=== PATIENT | female | born 1975 | race Caucasian/White ===

== ENCOUNTER 2017-10-28 09:58 | Day surgery (SDC) | payer OTHER ==
[~2017-10-28 09:58] MED LIST: Lactated Ringers 1,000 ML IV SCH; Lidocaine 1%/Sod Bicarbonate in NS 8.4% 1 ML Syringe IDERM PRN; Sodium Chloride 0.9% 10 ML Syringe FLUSH PRN
--- NOTE | 2017-10-28 10:41 | PCM.PREANE ---
Preanesthetic Assessment - Procedure Proposed Procedure: Coloroscopy - Anesthesia/Transfusion/Family Hx Anesthesia History: Prior Anesthesia Reaction ("quit breathing during surgery") Family History of Anesthesia Reaction: Yes ("dad doesn't take well to anesthesia " ? resistance?) Transfusion History: No Prior Transfusion(s) Intubation History: Unknown - Review of Systems General: No Symptoms Pulmonary: No Symptoms, Other (asthma ) Cardiovascular: No Symptoms Gastrointestinal: No Symptoms Neurological: No Symptoms Other: Reports: None - Physical Assessment NPO Status Date: 10/28/17 NPO Status Time: 01:30 O2 Sat by Pulse Oximetry: 96 Respiratory Rate: 16 Vital Signs: Last Vital Signs Temp 36.1 C 10/28/17 10:00 Pulse 86 10/28/17 10:00 Resp 16 10/28/17 10:00 BP 141/100 H 10/28/17 10:00 Pulse Ox 96 10/28/17 10:00 Height: 1.6 m Weight: 133.81 kg ASA Class: 2 Mental Status: Alert & Oriented x3 Airway Class: Mallampati = 1 Dentition: Reports: Normal Dentition Thyro-Mental Finger Breadths: 3 Mouth Opening Finger Breadths: 5 ROM/Head Extension: Full Lungs: Clear to Auscultation, Normal Respiratory Effort Cardiovascular: Regular Rate, Regular Rhythm - Allergies Allergies/Adverse Reactions: Allergies Allergy/AdvReac Type Severity Reaction Status Date / Time No Known Allergies Allergy Verified 10/27/17 13:13 - Blood Blood Available: No - Acknowledgements Anesthesia Type Planned: MAC Pt an Appropriate Candidate for the Planned Anesthesia: Yes Alternatives and Risks of Anesthesia Discussed w Pt/Guardian: Yes Pt/Guardian Understands and Agrees with Anesthesia Plan: Yes PreAnesthesia Questionnaire HEENT History: Reports: Impaired Vision Cardiovascular History: Reports: Hypertension Respiratory History: Reports: Sleep Apnea, Other (See Below) Other Respiratory History: with Gastrointestinal History: Reports: Other (See Below) Other Gastrointestinal History: hepatic stenosis Genitourinary History: Reports: Renal Calculus 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 BANDING 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: Reports: , Other (See Below) Other OB/BYN History: ovarian cyst Musculoskeletal History: Reports: None Neurological History: Reports: None Psychiatric History: Reports: Addiction, Anxiety, Other (See Below) Other Psychiatric History: insomnia Endocrine/Metabolic History: Reports: None, Obesity/BMI 30+ Hematologic History: Reports: None Immunologic History: Reports: None Oncologic (Cancer) History: Reports: None Dermatologic History: Reports: Other (See Below) Other Dermatologic History: subcutaneous nodules, boils - Past Surgical History Head Surgeries/Procedures: Reports: None HEENT Surgical History: Reports: None Cardiovascular Surgical History: Reports: None Respiratory Surgical History: Reports: None GI Surgical History: Reports: Colonoscopy Female Surgical History: Reports: Hysterectomy Male Surgical History: Reports: None Neurological Surgical History: Reports: None Musculoskeletal Surgical History: Reports: None Oncologic Surgical History: Reports: None Dermatological Surgical History: Reports: None - SUBSTANCE USE Smoking Status *Q: Current Every Day Smoker Recreational Drug Use History: No - HOME MEDS Home Medications: Home Meds Eszopiclone [Lunesta] 3 mg PO BEDTIME 10/27/17 [History] Hydrochlorothiazide 25 mg PO DAILY 10/27/17 [History] Mometasone Furoate [Elocon] 1 dose TOP ASDIRECTED PRN 10/27/17 [History] Multivitamin [Daily Multiple Vitamin] 1 tab PO DAILY 10/27/17 [History] Sennosides [Senna] 8.6 mg PO DAILY PRN 10/27/17 [History] buPROPion HCl [Wellbutrin Xl] 150 mg PO DAILY 10/27/17 [History] - CURRENT (IN HOUSE) MEDS Current Meds: Current Medications Lactated Ringer's (Ringers, Lactated) 1,000 mls @ 125 mls/hr IV ASDIRECTED JUNE Last Admin: 10/28/17 10:15 Dose: 125 mls/hr Lidocaine/Sodium Bicarbonate (Buffered Lidocaine 1% In Ns 8.4%) 0.25 ml IDERM ONETIME PRN PRN Reason: Prior to IV Start Last Admin: 10/28/17 10:15 Dose: 0.25 ml Sodium Chloride (Saline Flush) 10 ml FLUSH ASDIRECTED PRN PRN Reason: Keep Vein Open
[2017-10-28] MEDS ORDERED: Propofol 200 MG/20 ML SDV ONE ×2 (10:45→10:54)
[2017-10-28] MEDS ORDERED: Lidocaine 1% 4 ML ONE (10:54)
[2017-10-28] MEDS ORDERED: Midazolam 1 MG/ML 2 ML SDV ONE (11:02)
--- NOTE | 2017-10-28 11:19 | PCM.OPNOTE ---
- General Post-Op/Procedure Note Date of Surgery/Procedure: 10/28/17 Operative Procedure(s): colonoscopy to cecum Pre Op Diagnosis: rectal bleeding Post-Op Diagnosis: Same Anesthesia Technique: MAC Primary Surgeon: Rohit Richards EBL in mLs: 0 Complications: None Condition: Good
[2017-10-28 11:31] VITALS: BP 112/54
--- NOTE | 2017-10-28 11:48 | PCM48HPAN ---
Post Anesthesia Note - EVALUATION WITHIN 48HRS OF ANESTHETIC Vital Signs in Normal Range: Yes Patient Participated in Evaluation: Yes Respiratory Function Stable: Yes Airway Patent: Yes Cardiovascular Function Stable: Yes Hydration Status Stable: Yes Pain Control Satisfactory: Yes Nausea and Vomiting Control Satisfactory: Yes Mental Status Recovered: Yes Pulse Rate: 76 SaO2: 98 Resp Rate: 16 Temperature: 36.2 C Blood Pressure: 112/54 Pulse Rate: 76
--- NOTE | 2017-10-28 12:12 | OR ---
DATE OF OPERATION: 10/28/2017 SURGEON: Rohit Richards MD PREOPERATIVE DIAGNOSIS: Rectal bleeding. POSTOPERATIVE DIAGNOSIS: Rectal bleeding. OPERATION PERFORMED: Colonoscopy to cecum. FINDINGS: Occasional diverticula in the sigmoid colon, some external hemorrhoids, did not see any internal hemorrhoids. There were no angiodysplasia, neoplasia, large tumor masses, or ulcerations noted. ANESTHESIA: Procedure done under IV sedation. DESCRIPTION OF PROCEDURE: The patient was taken to the endoscopy room, placed in a supine position, connected to monitoring equipment, given IV sedation, placed in the left lateral position, showing some external hemorrhoidal tags. Rectal exam showed good sphincter tone. A video Olympus colonoscope was then introduced into the rectum and threaded up without problem to the cecum, where the appendicular orifice was noted. Prep was excellent. [place] cleansing score grade A and the scope was slowly withdrawn showing the cecum, ascending colon, transverse colon, descending colon, sigmoid colon, and rectum. Retroflexed view was done. The above noted was found, did not see any need for banding of hemorrhoids. The patient tolerated the procedure, sent to recovery room in a stable condition, will be followed up in the clinic as needed. ESTIMATED BLOOD LOSS: MMODAL /[id number]
== END 2017-10-28 11:53 | disposition home or self-care (01) ==
LOC: JD.SDS 09:58
PROVIDERS: ATTEND Surgery
DX: K62.5 Hemorrhage of anus and rectum (principal); K57.30 Diverticulosis of large intestine without perforation or abscess without bleeding; K64.4 Residual hemorrhoidal skin tags; I10 Essential (primary) hypertension; J45.909 Unspecified asthma, uncomplicated; G47.30 Sleep apnea, unspecified; F41.9 Anxiety disorder, unspecified; E66.9 Obesity, unspecified; F17.200 Nicotine dependence, unspecified, uncomplicated; Z79.899 Other long term (current) drug therapy; Z90.710 Acquired absence of both cervix and uterus; Z98.890 Other specified postprocedural states
CPT/HCPCS: J2001; J2250; J2704; J7120

== ENCOUNTER 2018-06-20 13:53 | Emergency (ER) | payer OTHER ==
[2018-06-20 14:08] VITALS: BP 157/106
[2018-06-20] MEDS ORDERED: Acetaminophen/HYDROcodone 325-5 MG Tab PO ONE (14:46)
--- NOTE | 2018-06-20 14:46 | EDM.PDOC ---
ED HPI GENERAL MEDICAL PROBLEM - General Chief Complaint: Back Pain or Injury Stated Complaint: BACK PAIN/ L SIDE PAIN Time Seen by Provider: 06/20/18 14:15 Source of Information: Reports: Patient, RN Notes Reviewed History Limitations: Reports: Other (Somewhat hostile) - History of Present Illness INITIAL COMMENTS - FREE TEXT/NARRATIVE: The patient states that she developed left back pain 2 days ago, but that it has become progressively worse. It is sharp and crampy in character. It comes and goes, depending on her movements; it is exacerbated by most movements, relieved with remaining still. No recent fever, nausea, vomiting, diarrhea, or urinary symptoms. The patient states that it may be similar to prior kidney stones, however, she states that all of her prior stones have been on the right, so she cannot really tell if this is the same. The patient took 800 mg of ibuprofen earlier today, without relief. The patient's PCP is Dr. Schultz. Treatments DIRECTOR OF ORTHOPEDICS: Reports: Other (see below) Other Treatments DIRECTOR OF ORTHOPEDICS: motrin Left Middle Back Pain Score (Numeric/FACES): 7 - Related Data Allergies Allergy/AdvReac Type Severity Reaction Status Date / Time No Known Allergies Allergy Verified 10/27/17 13:13 Home Meds: Home Meds Mometasone Furoate [Elocon] 1 dose TOP ASDIRECTED PRN 10/27/17 [History] hydroCHLOROthiazide [Hydrochlorothiazide] 25 mg PO DAILY 10/27/17 [History] Orphenadrine [Norflex] 1 tab PO Q12H PRN #14 tab.er 06/20/18 [Rx] QUEtiapine Fumarate [Seroquel] 50 mg PO DAILY 06/20/18 [History] Past Medical History HEENT History: Reports: Impaired Vision Cardiovascular History: Reports: Hypertension Respiratory History: Reports: Sleep Apnea Gastrointestinal History: Reports: Other (See Below) (Hepatic steatosis) Genitourinary History: Reports: Renal Calculus PRODUCER ASSISTANT History: Reports: , Other (See Below) Other PRODUCER ASSISTANT History: ovarian cyst Psychiatric History: Reports: Anxiety, Other (See Below) (Insomnia) Endocrine/Metabolic History: Reports: Obesity/BMI 30+ - Past Surgical History GI Surgical History: Reports: Colonoscopy Female Surgical History: Reports: Section (x 1), Hysterectomy Social & Family History - Tobacco Use Smoking Status *Q: Current Some Day Smoker Years of Tobacco use: 29 Packs/Tins Daily: 0.4 - Caffeine Use Caffeine Use: Reports: Coffee - Alcohol Use Alcohol Use History: Yes Alcohol Use Frequency: Socially - Recreational Drug Use Recreational Drug Use: No - Living Situation & Occupation Living situation: Reports: , Alone 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 ED EXAM, GENERAL - Physical Exam Exam: See Below Exam Limited By: No Limitations General Appearance: Alert, WD/WN, No Apparent Distress (Appears uncomfortable) Eye Exam: Bilateral Eye: EOMI, Normal Inspection Ears: Normal External Exam, Hearing Grossly Normal Nose: Normal Inspection Throat/Mouth: Normal Inspection, Normal Lips, Normal Voice, No Airway Compromise Head: Atraumatic, Normocephalic Neck: Normal Inspection, Full Range of Motion Respiratory/Chest: No Respiratory Distress, Lungs Clear, Normal Breath Sounds, No Accessory Muscle Use Cardiovascular: Normal Peripheral Pulses, Regular Rate, Rhythm, No Gallop, No JVD, No Murmur, No Rub Peripheral Pulses: 4+: Radial (L), Radial (R) GI/Abdominal: Normal Bowel Sounds, Soft, No Organomegaly, No Distention, No Abnormal Bruit, No Mass, Other (Obese) (Female) Exam: Deferred Rectal (Female) Exam: Deferred Back Exam: Normal Inspection, Full Range of Motion (The patient is able to flex at the hip to 90, and extend to 45. She is able to twist bilaterally to 45. She is able to tilt bilaterally to 30. Unilateral knee bend is normal, bilaterally. Straight leg raise to 45 on the left induces back pain, but no radicular pain. Straight leg raise on the right to 70 is limited only by stretch, with no back pain or radicular symptoms.). No: CVA Tenderness (L), CVA Tenderness (R) Extremities: Normal Inspection, Normal Range of Motion, Non-Tender, Normal Capillary Refill, No Pedal Edema Neurological: Alert, Oriented, Normal Cognition, No Motor/Sensory Deficits Psychiatric: Flat Affect Skin Exam: Warm, Dry, Intact, Normal Color, No Rash Course - Vital Signs Last Recorded V/S: Last Vital Signs Temp 37.0 C 06/20/18 14:07 Pulse 86 06/20/18 14:07 Resp 20 06/20/18 14:07 BP 157/106 H 06/20/18 14:07 Pulse Ox 99 06/20/18 14:07 - Orders/Labs/Meds Orders: Active Orders 24 hr Category Date Time Status Orphenadrine [Norflex] Med 06/20/18 15:16 Stat 100 mg PO ONETIME STA Labs: Laboratory Tests 06/20/18 Range/Units 14:55 Urine Color Yellow (Yellow) Urine Appearance Clear (Clear) Urine pH 7.0 (5.0-8.0) Ur Specific [place] 1.015 (1.005-1.030) Urine Protein Negative (Negative) Urine Glucose (UA) Negative (Negative) Urine Ketones Negative (Negative) Urine Occult Blood Negative (Negative) Urine Nitrite Negative (Negative) Urine Bilirubin Negative (Negative) Urine Urobilinogen 0.2 (0.2-1.0) Ur Leukocyte Esterase Negative (Negative) Urine RBC 0-5 (0-5) /hpf Urine WBC 0-5 (0-5) /hpf Ur Epithelial Cells 0-5 (0-5) /hpf Urine Bacteria Occasional (FEW) /hpf Urine Mucus Not seen (FEW) /hpf Meds: Medications Discontinued Medications Generic Name Dose Route Start Last Admin Trade Name Freq PRN Reason Stop Dose Admin Hydrocodone Bitart/Acetaminophen 2 tab 06/20/18 14:46 06/20/18 14:51 Mildred 325-5 Mg PO 06/20/18 14:47 2 tab ONETIME ONE Administration Orphenadrine Citrate 100 mg 06/20/18 15:16 Norflex PO 06/20/18 15:17 ONETIME STA - Re-Assessments/Exams Free Text/Narrative Re-Assessment/Exam: 06/20/18 14:45 The cause of the patient's left flank pain is unclear. She has a history of kidney stones, and she states that her pain may be similar to prior kidney stones, except that they have always been on the right. Her pain is made worse with any movement, and she has no CVA tenderness, which are not consistent with a kidney stone. On examination, she has remarkably good flexibility, without induction of symptoms, speaking against a musculoskeletal etiology, and she has no radicular pain whatsoever, speaking against a herniated disc. I have ordered a urinalysis. If there is blood in the urine, we will proceed with a CT of her abdomen and pelvis without contrast, to look for a ureterolith. If her urine is free of blood, I will treat for a muscle spasm with Norflex, unless her urine demonstrates a UTI, in which case I would treat with an antibiotic. In the meantime, I have ordered 2 tablets of Mildred. The patient drove herself here, but told Mary Anne RN that her boyfriend is on his way. She lives here in [place]. 06/20/18 15:17 The patient's urinalysis is completely normal. While it is possible to have a ureterolith without blood in the urine, it is extremely rare, and, along with her history and physical examination, I don't believe that the risks of radiation from a CT scan outweighed the potential benefits. I am therefore going to recommend treatment for a muscle spasm. I have ordered Norflex him and will also have her continue to take ibuprofen. If she does not have significant improvement within the next few days, I would like her follow-up with her PCP, Dr. Schultz. Departure - Departure Time of Disposition: 15:22 Disposition: Home, Self-Care 01 Condition: Good Clinical Impression: Back muscle spasm - Discharge Information *PRESCRIPTION DRUG MONITORING PROGRAM REVIEWED*: Not Applicable *COPY OF PRESCRIPTION DRUG MONITORING REPORT IN PATIENT DAVIE: Not Applicable Referrals: Vladimir Schultz MD [Primary Care Provider] - Forms: ED Department Discharge Additional Instructions: You were seen in the emergency room for 2 days of left back pain. Workup in the ER included a urinalysis, which returned completely normal. You do not have a urinary tract infection, and there is no blood in your urine. The likelihood of your having a kidney stone is extremely small. Based on your history, physical examination, and urinalysis results, your back pain is most likely due to a muscle spasm. You have been started on the muscle relaxant Norflex. A prescription for Norflex has been sent to the [facility], located in the [facility] grocery store. Take one tablet of Norflex every 12 hours, starting tomorrow morning, 06/21/2018, as prescribed. In addition, recommend that you take [id number] ibuprofen, 3-4 tablets ( 600-800 mg) every 8 hours, with food, around the clock. If you continue to have back pain by the end this week, we recommend that you follow-up with your PCP, Dr. Vladimir Schultz. If any other problems, please do not hesitate to return to the ER. - My Orders Last 24 Hours: My Active Orders 06/20/18 15:16 Orphenadrine [Norflex] 100 mg PO ONETIME STA - Assessment/Plan Last 24 Hours: My Active Orders 06/20/18 15:16 Orphenadrine [Norflex] 100 mg PO ONETIME STA
[2018-06-20] MEDS ORDERED: Orphenadrine 100 MG Tab.ER PO STA (15:16)
== END 2018-06-20 15:40 | disposition home or self-care (01) ==
LOC: JD.ED 13:53
DX: M62.830 Muscle spasm of back (principal); I10 Essential (primary) hypertension; F17.210 Nicotine dependence, cigarettes, uncomplicated; Z79.899 Other long term (current) drug therapy
CPT/HCPCS: 81001; 99283; A9270

== ENCOUNTER 2019-01-30 16:36 | Emergency (ER) | payer OTHER ==
[2019-01-30] MEDS ORDERED: Ketorolac 60 MG/2 ML SDV IM ONE (17:13)
[2019-01-30] MEDS ORDERED: predniSONE 20 MG Tab PO ONE (17:21)
--- NOTE | 2019-01-30 17:23 | EDM.PDOC ---
ED HPI GENERAL MEDICAL PROBLEM - General Chief Complaint: Neck Problem Stated Complaint: NECK AND SHOULDER PAIN Time Seen by Provider: 01/30/19 16:57 Source of Information: Reports: Patient, RN Notes Reviewed History Limitations: Reports: No Limitations - History of Present Illness INITIAL COMMENTS - FREE TEXT/NARRATIVE: Patient is a 44-year-old female who presents to the ED for evaluation of neck and shoulder pain. The patient states that the pain developed this last and was told to start with but is gradually worsened. She states she went to the walk-in clinic on Tuesday and was given a muscle relaxer, Vicodin, and Aleve, she has been taking these but has not had much relief. The patient states that anytime she turns her head to the left she gets an immediate sharp intense lightning type sensation which she calls a "zing" , She states that she also feels as if she tilts her head back to far. She did try to go the chiropractor today, but they've referred her to the ER for further pain management. Patient does not remember any trauma to the area. She does not state whether she was having any hot packs or ice packs to the area. Neck Pain Score (Numeric/FACES): 7 - Related Data Allergies Allergy/AdvReac Type Severity Reaction Status Date / Time No Known Allergies Allergy Verified 01/30/19 16:53 Home Meds: Home Meds Mometasone Furoate [Elocon] 1 dose TOP ASDIRECTED PRN 10/27/17 [History] hydroCHLOROthiazide [Hydrochlorothiazide] 25 mg PO DAILY 10/27/17 [History] Orphenadrine [Norflex] 1 tab PO Q12H PRN #14 tab.er 06/20/18 [Rx] QUEtiapine Fumarate [Seroquel] 50 mg PO DAILY 06/20/18 [History] predniSONE [Deltasone] 20 mg PO ASDIRECTED #15 tablet 01/30/19 [Rx] Past Medical History HEENT History: Reports: Impaired Vision Cardiovascular History: Reports: Hypertension Respiratory History: Reports: Sleep Apnea Other Respiratory History: with Gastrointestinal History: Reports: Other (See Below) Other Gastrointestinal History: hepatic stenosis Genitourinary History: Reports: Renal Calculus RAWHIDE TRIMMER History: Reports: , Other (See Below) Other RAWHIDE TRIMMER History: ovarian cyst Musculoskeletal History: Reports: None Neurological History: Reports: None Psychiatric History: Reports: Anxiety, Other (See Below) Other Psychiatric History: insomnia Endocrine/Metabolic History: Reports: Obesity/BMI 30+ Hematologic History: Reports: None Immunologic History: Reports: None Oncologic (Cancer) History: Reports: None Dermatologic History: Reports: Other (See Below) Other Dermatologic History: subcutaneous nodules, boils - Past Surgical History Head Surgeries/Procedures: Reports: None GI Surgical History: Reports: Colonoscopy Female Surgical History: Reports: Section, Hysterectomy Neurological Surgical History: Reports: None Musculoskeletal Surgical History: Reports: None Oncologic Surgical History: Reports: None Dermatological Surgical History: Reports: None Social & Family History - Tobacco Use Smoking Status *Q: Never Smoker - Caffeine Use Caffeine Use: Reports: Coffee - Living Situation & Occupation Living situation: Reports: , Alone 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) ED ROS GENERAL - Review of Systems Review Of Systems: See Below Constitutional: Denies: Fever, Chills HEENT: Reports: No Symptoms, Other (L sided posterior neck pain) Respiratory: Denies: Shortness of Breath Cardiovascular: Denies: Chest Pain Endocrine: Reports: No Symptoms GI/Abdominal: Denies: Constipation, Diarrhea, Nausea, Vomiting : Reports: No Symptoms Musculoskeletal: Reports: No Symptoms Skin: Reports: No Symptoms Neurological: Reports: No Symptoms Psychiatric: Reports: No Symptoms Hematologic/Lymphatic: Reports: No Symptoms ED EXAM, UPPER BACK/NECK PAIN - Physical Exam Exam: See Below Exam Limited By: No Limitations General Appearance: Alert, WD/WN, No Apparent Distress (pt appears to be in mild amount of pain.), Other (pt moves in room very rigidly with a stiff neck) Eye Exam: Bilateral Eye: EOMI, Normal Inspection, PERRL Throat/Mouth Exam: Normal Inspection, Normal Lips, Normal Teeth, Normal Gums, Normal Oropharynx, Normal Voice, No Airway Compromise Head Exam: Atraumatic, Normocephalic Neck Exam: Non-Tender, Normal Alignment, Normal Inspection, Limited Range of Motion (d/t pain, pt has stiff neck), Stiff Neck, Tender Lateral (lower lateral neck and over superior trapezius mainly) Nexus Criteria: No: Posterior, Midline Cervical Tenderness, Evidence of Intoxication, Altered Level of Consciousness, Focal Neurological Deficit, Painful Distraction Injuries Cardiovascular/Respiratory: Regular Rate, Rhythm, No M/R/G, Normal Peripheral Pulses, No JVD, Normal Breath Sounds, No Respiratory Distress GI/Abdominal: Normal Bowel Sounds, Soft, Non-Tender, No Distention, No Mass Extremities: Normal Inspection, Normal Range of Motion, Normal Capillary Refill Neurologic: No Motor/Sensory Deficits, Alert, Normal Mood/Affect, Oriented x 3 Psychiatric: Normal Affect, Normal Mood Skin Exam: Normal Color, Warm/Dry Course - Vital Signs Last Recorded V/S: Last Vital Signs Temp 97.1 F 01/30/19 16:51 Pulse 75 01/30/19 16:51 Resp 16 01/30/19 16:51 BP 172/111 H 01/30/19 16:51 Pulse Ox 97 01/30/19 16:51 - Orders/Labs/Meds Meds: Medications Discontinued Medications Generic Name Dose Route Start Last Admin Trade Name Charlie PRN Reason Stop Dose Admin Ketorolac Tromethamine 60 mg 01/30/19 17:13 Toradol IM 01/30/19 17:14 ONETIME ONE - Re-Assessments/Exams Free Text/Narrative Re-Assessment/Exam: 01/30/19 17:26 Patient presents to the ED for the evaluation of a stiff neck. I did order Toradol injection and some PO prednisone, will send her home with a steroid burst, and a outpatient order for PT with possible traction therapy to evaluate her cervical neck pain. Departure - Departure Time of Disposition: 17:28 Disposition: Home, Self-Care 01 Condition: Fair Clinical Impression: Stiff neck - Discharge Information *PRESCRIPTION DRUG MONITORING PROGRAM REVIEWED*: No *COPY OF PRESCRIPTION DRUG MONITORING REPORT IN PATIENT DAVIE: No Instructions: Cervical Sprain, [id number], Neck Exercises Referrals: Madison Villafuerte NP [Primary Care Provider] - Additional Instructions: You were evaluated in the ED today for your stiff neck. You were given an injection of Toradol, and anti-inflammatory, and prednisone, it is likely that your pain is due to some sort of facet joint issue. The prednisone should take down some of the inflammation in these joint areas. You also were given an outpatient order for physical therapy, they should call you to schedule an appointment for possible traction therapy as this might help unlock the facet joints that are causing issues. Please take your other medications as previously prescribed. Please return to the ED if your symptoms change or worsen.
[2019-01-30 18:31] VITALS: BP 157/109
== END 2019-01-30 18:30 | disposition home or self-care (01) ==
LOC: JD.ED 16:36
DX: M43.6 Torticollis (principal); I10 Essential (primary) hypertension; F41.9 Anxiety disorder, unspecified; Z79.899 Other long term (current) drug therapy
CPT/HCPCS: 96372; 99283; A9270; J1885

== ENCOUNTER 2019-07-23 11:53 | Emergency (ER) | payer OTHER, SELFPAY ==
--- NOTE | 2019-07-23 12:22 | EDM.PDOC ---
ED HPI GENERAL MEDICAL PROBLEM - General Chief Complaint: Respiratory Problem Stated Complaint: HEAD AND CHEST CONGESTION Time Seen by Provider: 07/23/19 12:04 Source of Information: Reports: Patient History Limitations: Reports: No Limitations - History of Present Illness INITIAL COMMENTS - FREE TEXT/NARRATIVE: She is a 44-year-old female who presents with complaints of dry cough, body aches, "burning "in her lungs for the last 2 days. She has not had any fevers or shortness of breath. Patient's 5-year-old child was recently diagnosed with influenza A last week. She did not get a flu shot this year. Patient has a history of asthma and states that she is here because she "gets bronchitis easily ". Chest Pain Score (Numeric/FACES): 3 - Related Data Allergies Allergy/AdvReac Type Severity Reaction Status Date / Time No Known Allergies Allergy Verified 07/23/19 12:00 Home Meds: Home Meds Mometasone Furoate [Elocon] 1 dose TOP ASDIRECTED PRN 10/27/17 [History] Albuterol [Ventolin HFA] 2 puff .XX Q4H PRN #1 inhaler 07/23/19 [Rx] Codeine/Promethazine [Phenergan with Codeine] 5 ml PO Q4HR PRN #100 ml 07/23/19 [Rx] metFORMIN HCl [Metformin HCl] 1,000 mg PO BID 07/23/19 [History] traZODone HCl [Trazodone HCl] 200 mg PO QPM 07/23/19 [History] Past Medical History HEENT History: Reports: Impaired Vision Cardiovascular History: Reports: Hypertension Respiratory History: Reports: Sleep Apnea Other Respiratory History: with Gastrointestinal History: Reports: Other (See Below) Other Gastrointestinal History: hepatic stenosis Genitourinary History: Reports: Renal Calculus CASH APPLICATIONS MANAGER History: Reports: , Other (See Below) Other CASH APPLICATIONS MANAGER History: ovarian cyst Musculoskeletal History: Reports: None Neurological History: Reports: None Psychiatric History: Reports: Anxiety, Other (See Below) Other Psychiatric History: insomnia Endocrine/Metabolic History: Reports: Obesity/BMI 30+ Hematologic History: Reports: None Immunologic History: Reports: None Oncologic (Cancer) History: Reports: None Dermatologic History: Reports: Other (See Below) Other Dermatologic History: subcutaneous nodules, boils - Past Surgical History Head Surgeries/Procedures: Reports: None GI Surgical History: Reports: Colonoscopy Female Surgical History: Reports: Section, Hysterectomy Neurological Surgical History: Reports: None Musculoskeletal Surgical History: Reports: None Oncologic Surgical History: Reports: None Dermatological Surgical History: Reports: None Social & Family History - Tobacco Use Smoking Status *Q: Current Every Day Smoker Years of Tobacco use: 10 Packs/Tins Daily: 0.2 - Caffeine Use Caffeine Use: Reports: Coffee - Recreational Drug Use Recreational Drug Use: No - Living Situation & Occupation Living situation: Reports: , Alone 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 ED EXAM, GENERAL - Physical Exam Exam: See Below Exam Limited By: No Limitations General Appearance: Alert, WD/WN, No Apparent Distress Ears: Normal External Exam, Normal Canal, Hearing Grossly Normal, Normal TMs Throat/Mouth: Normal Inspection, Normal Lips, Normal Teeth, Normal Gums, Normal Oropharynx, Normal Voice, No Airway Compromise Head: Atraumatic, Normocephalic Neck: Normal Inspection, Supple, Non-Tender, Full Range of Motion Respiratory/Chest: No Respiratory Distress, Lungs Clear, Normal Breath Sounds, No Accessory Muscle Use, Chest Non-Tender Cardiovascular: Normal Peripheral Pulses, Regular Rate, Rhythm, No Edema, No Gallop, No JVD, No Murmur, No Rub Neurological: Alert, Oriented, CN II-XII Intact, Normal Cognition, Normal Gait, Normal Reflexes, No Motor/Sensory Deficits Psychiatric: Normal Affect, Normal Mood Skin Exam: Warm, Dry, Intact, Normal Color, No Rash Course - Vital Signs Last Recorded V/S: Last Vital Signs Temp 98.1 F 07/23/19 12:03 Pulse 84 07/23/19 12:03 Resp 14 07/23/19 12:03 BP 154/108 H 07/23/19 12:03 Pulse Ox 100 07/23/19 12:03 - Re-Assessments/Exams Free Text/Narrative Re-Assessment/Exam: 07/23/19 13:02 Patient was positive for influenza B. Discussed Tamiflu treatment and she declined. Will prescribe an albuterol inhaler as needed as well as Phenergan with codeine for cough. Discharge instructions as documented. Departure - Departure Time of Disposition: 13:03 Disposition: Home, Self-Care 01 Condition: Fair Clinical Impression: Influenza B - Discharge Information *PRESCRIPTION DRUG MONITORING PROGRAM REVIEWED*: No *COPY OF PRESCRIPTION DRUG MONITORING REPORT IN PATIENT DAVIE: No Prescriptions: Codeine/Promethazine [Phenergan with Codeine] 5 ml PO Q4HR PRN #100 ml PRN Reason: Cough Albuterol [Ventolin HFA] 2 puff .XX Q4H PRN #1 inhaler PRN Reason: Shortness Of Breath Instructions: Influenza, Adult, [id number] Referrals: Madison Villafuerte IRRIGATOR [Primary Care Provider] - Forms: ED Department Discharge Additional Instructions: You were seen in the emergency department today for cough, body aches, and fatigue for the last 2 days. You did test positive for influenza B. Discussed the use of Tamiflu and this was declined. A prescription for albuterol for shortness of breath as well as Phenergan with codeine for cough has been sent to [facility]. Take these medications as prescribed. Recommend that you rest and ensure adequate fluid intake. You may use [id number] Tylenol or ibuprofen as needed for any fever or discomfort. If you should experience any worsening symptoms, please do not hesitate to return to the emergency department or follow-up with your primary care provider. Sepsis Event Note - Evaluation Sepsis Screening Result: No Definite Risk - Focused Exam Vital Signs: Vital Signs Temp Pulse Resp BP Pulse Ox 07/23/19 12:03 98.1 F 84 14 154/108 H 100 Date Exam was Performed: 07/23/19 Time Exam was Performed: 13:02
[2019-07-23 14:00] VITALS: BP 130/88; PULSE 73
== END 2019-07-23 13:18 | disposition home or self-care (01) ==
LOC: JD.ED 11:53
DX: J10.1 Influenza due to other identified influenza virus with other respiratory manifestations (principal); J45.909 Unspecified asthma, uncomplicated; I10 Essential (primary) hypertension; F41.9 Anxiety disorder, unspecified; F17.210 Nicotine dependence, cigarettes, uncomplicated; E66.9 Obesity, unspecified; Z68.43 Body mass index [BMI] 50.0-59.9, adult; Z79.899 Other long term (current) drug therapy
CPT/HCPCS: 87804; 99283; 99284

== ENCOUNTER 2020-05-09 07:44 | Emergency (ER) | payer OTHER, SELFPAY ==
[2020-05-09 07:58] VITALS: BP 147/88; PULSE 98
[2020-05-09] MEDS ORDERED: Sodium Chloride 0.9% 1,000 ML IV STA (08:19)
[2020-05-09] MEDS ORDERED: Sodium Chloride 0.9% 10 ML Syringe FLUSH PRN (08:19)
[2020-05-09] MEDS ORDERED: Famotidine 20 MG/2 ML SDV IVPUSH ONE (08:20)
[2020-05-09] MEDS ORDERED: methylPREDNISolone Sodium Succinate 125 MG/2 ML SDV IVPUSH ONE (08:20)
[2020-05-09] MEDS ORDERED: diphenhydrAMINE 50 MG/ML SDV IVPUSH ONE (08:20)
--- NOTE | 2020-05-09 08:26 | EDM.PDOC ---
ED HPI GENERAL MEDICAL PROBLEM - General Chief Complaint: Skin Complaint Stated Complaint: SKIN COMPLAINT/HIVES Time Seen by Provider: 05/09/20 08:14 Source of Information: Reports: Patient History Limitations: Reports: No Limitations - History of Present Illness INITIAL COMMENTS - FREE TEXT/NARRATIVE: The patient presents with hives. The patient had a gastric sleeve done in [facility] on April 30. She had the steri-stripes removed 3 days ago and there was swelling under them and now she has developed hives on her trunk, and extremities. She has been using benadryl and hydrocortisone cream but it is not helping. She has no swelling in her throat and no trouble breathing. Onset: Gradual Duration: Day(s): (3) Location: Reports: Generalized Quality: Reports: Other (itchy) Improves with: Reports: None Worsens with: Reports: None Associated Symptoms: Reports: No Other Symptoms - Related Data Allergies Allergy/AdvReac Type Severity Reaction Status Date / Time No Known Allergies Allergy Verified 05/09/20 07:51 Home Meds: Home Meds Mometasone Furoate [Elocon] 1 dose TOP ASDIRECTED PRN 10/27/17 [History] Albuterol [Ventolin HFA] 2 puff .XX Q4H PRN #1 inhaler 07/23/19 [Rx] Sertraline [Zoloft] 25 mg PO DAILY 05/09/20 [History] Zolpidem [Ambien] 10 mg PO DAILY 05/09/20 [History] predniSONE [Prednisone] 40 mg PO DAILY #10 tablet 05/09/20 [Rx] Past Medical History HEENT History: Reports: Impaired Vision Cardiovascular History: Reports: Hypertension Respiratory History: Reports: Sleep Apnea Other Respiratory History: with Gastrointestinal History: Reports: Other (See Below) Other Gastrointestinal History: hepatic stenosis Genitourinary History: Reports: Renal Calculus 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: , Other (See Below) Other HORIZONTAL BORING MILL SET UP OPERATOR History: ovarian cyst Musculoskeletal History: Reports: None Neurological History: Reports: None Psychiatric History: Reports: Anxiety, Other (See Below) Other Psychiatric History: insomnia Endocrine/Metabolic History: Reports: Obesity/BMI 30+ Hematologic History: Reports: None Immunologic History: Reports: None Oncologic (Cancer) History: Reports: None Dermatologic History: Reports: Other (See Below) Other Dermatologic History: subcutaneous nodules, boils - Past Surgical History Head Surgeries/Procedures: Reports: None HEENT Surgical History: Reports: None Cardiovascular Surgical History: Reports: None Respiratory Surgical History: Reports: None GI Surgical History: Reports: Colonoscopy Female Surgical History: Reports: Section, Hysterectomy Neurological Surgical History: Reports: None Musculoskeletal Surgical History: Reports: None Oncologic Surgical History: Reports: None Dermatological Surgical History: Reports: None Social & Family History - Tobacco Use Tobacco Use Status *Q: Never Tobacco User - Caffeine Use Caffeine Use: Reports: None - Recreational Drug Use Recreational Drug Use: No - Living Situation & Occupation Living situation: Reports: , Alone 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) ED ROS GENERAL - Review of Systems Review Of Systems: See Below Constitutional: Reports: No Symptoms HEENT: Reports: No Symptoms Respiratory: Reports: No Symptoms Cardiovascular: Reports: No Symptoms Endocrine: Reports: No Symptoms GI/Abdominal: Reports: No Symptoms : Reports: No Symptoms Musculoskeletal: Reports: No Symptoms Skin: Reports: Rash (urticaria) Neurological: Reports: No Symptoms ED EXAM, SKIN/RASH Exam: See Below Exam Limited By: No Limitations General Appearance: Alert, No Apparent Distress Ears: Normal External Exam Nose: Normal Inspection Head: Atraumatic, Normocephalic Neck: Normal Inspection Respiratory/Chest: No Respiratory Distress, Lungs Clear, Normal Breath Sounds Cardiovascular: Regular Rate, Rhythm, No Edema, No Murmur GI/Abdominal: Soft, Non-Tender, No Organomegaly, No Mass, Other (3 incision sites with erythema around them. Urticaria to her arms and legs and trunk.) Course - Vital Signs Last Recorded V/S: Last Vital Signs Temp 97.4 F 05/09/20 07:54 Pulse 98 05/09/20 07:54 Resp 13 05/09/20 07:54 BP 147/88 H 05/09/20 07:54 Pulse Ox 100 05/09/20 07:54 - Orders/Labs/Meds Orders: Active Orders 24 hr Category Date Time Status Peripheral IV Care [RC] . DIRECTED Care 05/09/20 08:19 Ordered Famotidine [Pepcid] Med 05/09/20 08:20 Once 20 mg IVPUSH ONETIME ONE Sodium Chloride 0.9% [Normal Saline] 1,000 ml Med 05/09/20 08:19 Ordered IV .BOLUS Sodium Chloride 0.9% [Saline Flush] Med 05/09/20 08:19 Ordered 10 ml FLUSH ASDIRECTED PRN diphenhydrAMINE [Benadryl] Med 05/09/20 08:20 Once 50 mg IVPUSH ONETIME ONE methylPREDNISolone Sod Succ [Solu-MEDROL] Med 05/09/20 08:20 Once 125 mg IVPUSH ONETIME ONE Peripheral IV Insertion Adult [OM.PC] Stat Oth 05/09/20 08:19 Ordered - Re-Assessments/Exams Free Text/Narrative Re-Assessment/Exam: 05/09/20 08:24 I ordered an IV NS 1L bolus, solu-medrol 125mg IV, pepcid 20mg IV and benadryl 50mg IV. I will get her on some prednisone, benadryl and pepcid. Departure - Departure Time of Disposition: 08:30 Disposition: Home, Self-Care 01 Condition: Good Clinical Impression: Urticaria Allergic reaction Qualifiers: Encounter type: initial encounter Qualified Code(s): T78.40XA - Allergy, unspecified, initial encounter - Discharge Information *PRESCRIPTION DRUG MONITORING PROGRAM REVIEWED*: Not Applicable *COPY OF PRESCRIPTION DRUG MONITORING REPORT IN PATIENT DAVIE: Not Applicable Prescriptions: predniSONE [Prednisone] 40 mg PO DAILY #10 tablet Referrals: Madison Villafuerte NP [Primary Care Provider] - 1 Week Additional Instructions: Take the prednisone daily for 5 days. Take the pepcid daily for 1 week. Take benadryl every 6 hours as needed for allergy symptoms. Heat will bring this rash out so if you take a hot shower or bath you may notice a rash more. You can put hydrocortisone cream on the rash near the incision sites. Please return if you are worse. Sepsis Event Note (ED) - Evaluation Sepsis Screening Result: No Definite Risk - Focused Exam Vital Signs: Vital Signs Temp Pulse Resp BP Pulse Ox 05/09/20 07:54 97.4 F 98 13 147/88 H 100 - My Orders Last 24 Hours: My Active Orders 05/09/20 08:19 Peripheral IV Care [RC] . DIRECTED Sodium Chloride 0.9% [Normal Saline] 1,000 ml IV .BOLUS Sodium Chloride 0.9% [Saline Flush] 10 ml FLUSH ASDIRECTED PRN Peripheral IV Insertion Adult [OM.PC] Stat 05/09/20 08:20 Famotidine [Pepcid] 20 mg IVPUSH ONETIME ONE diphenhydrAMINE [Benadryl] 50 mg IVPUSH ONETIME ONE methylPREDNISolone Sod Succ [Solu-MEDROL] 125 mg IVPUSH ONETIME ONE - Assessment/Plan Last 24 Hours: My Active Orders 05/09/20 08:19 Peripheral IV Care [RC] . DIRECTED Sodium Chloride 0.9% [Normal Saline] 1,000 ml IV .BOLUS Sodium Chloride 0.9% [Saline Flush] 10 ml FLUSH ASDIRECTED PRN Peripheral IV Insertion Adult [OM.PC] Stat 05/09/20 08:20 Famotidine [Pepcid] 20 mg IVPUSH ONETIME ONE diphenhydrAMINE [Benadryl] 50 mg IVPUSH ONETIME ONE methylPREDNISolone Sod Succ [Solu-MEDROL] 125 mg IVPUSH ONETIME ONE
== END 2020-05-09 10:15 | disposition home or self-care (01) ==
LOC: JD.ED 07:44
DX: L50.0 Allergic urticaria (principal); F41.9 Anxiety disorder, unspecified; I10 Essential (primary) hypertension; E66.9 Obesity, unspecified; Z68.43 Body mass index [BMI] 50.0-59.9, adult; Z79.899 Other long term (current) drug therapy
CPT/HCPCS: 96374; 96375; 99283; 99283-25; J1200; J2930; J3490; J7030

== ENCOUNTER 2020-05-11 15:47 | Emergency (ER) | payer OTHER ==
[2020-05-11 16:04] VITALS: BP 150/70; PULSE 74
[2020-05-11] MEDS ORDERED: predniSONE 20 MG Tab PO ONE (16:13)
--- NOTE | 2020-05-11 16:18 | EDM.PDOC ---
ED HPI GENERAL MEDICAL PROBLEM - General Chief Complaint: Skin Complaint Stated Complaint: HIVES Time Seen by Provider: 05/11/20 16:00 Source of Information: Reports: Patient History Limitations: Reports: No Limitations - History of Present Illness INITIAL COMMENTS - FREE TEXT/NARRATIVE: 45-year-old female presents to the ED with continued problems with recurrent urticaria outbreaks for the last 4 days. Patient had a gastric sleeve procedure done laparoscopically in [place] April 30. She did have Steri-Strips holding her abdominal wounds together and reacted fairly violently to the Steri- Strip glue and still has patches of erythema and contact dermatitis where they were. She developed urticaria which became generalized approximately 3 days ago. She was seen through the ED and started on prednisone 20 mg once daily in the morning and has been taking Benadryl almost every 6 hours. In spite of this she is continue to break out in hives. She felt herself wheezing a bit today which made her come back to the emergency room. She has had no trouble with loss of voice and no sore throat. To her knowledge she has never had urticaria prior. Urticaria is worse in her groin and axilla. However it is generalized involving all extremities abdominal wall and her back. Itching is so severe she cannot sleep very well. Onset: Gradual Onset Date: 05/08/20 Duration: Day(s):, Getting Worse, Waxing/Waning Location: Reports: Generalized (Lysed urticaria involving extremities axilla and groin.) Quality: Reports: Other Severity: Severe (Lies severe itch.) Improves with: Reports: Medication (Benadryl has been helping with some of the pruritus.) Worsens with: Reports: Other (Worsens with exercise and) Context: Reports: Other (Developed urticaria after having Steri-Strips placed on her abdominal wounds April 30 after having a gastric sleeve procedure in [place]. The thinking is that she has developed an allergic response to the gl ue of the Steri-Strips as she has marked contact dermatitis at the sites of the Steri-Strips which have been removed.). Denies: Activity ( having a hot shower. She been using tepid showers as of late.), Exercise, Lifting, Sick Contact, Trauma Associated Symptoms: Reports: Other (Else a little short more short of breath and wheezy today. No throat closure symptoms.) Treatments SEE SUPERVISOR: Reports: Other (see below) (Is been taking Benadryl 75 mg almost every 6 hours.) - Related Data Allergies Allergy/AdvReac Type Severity Reaction Status Date / Time No Known Allergies Allergy Verified 05/11/20 15:55 Home Meds: Home Meds Mometasone Furoate [Elocon] 1 dose TOP ASDIRECTED PRN 10/27/17 [History] Albuterol [Ventolin HFA] 2 puff .XX Q4H PRN #1 inhaler 07/23/19 [Rx] Sertraline [Zoloft] 25 mg PO DAILY 05/09/20 [History] Zolpidem [Ambien] 10 mg PO DAILY 05/09/20 [History] predniSONE [Prednisone] 40 mg PO DAILY #10 tablet 05/09/20 [Rx] predniSONE [Prednisone] 20 mg PO BID #15 tablet 05/11/20 [Rx] Past Medical History HEENT History: Reports: Impaired Vision Cardiovascular History: Reports: Hypertension Respiratory History: Reports: Asthma (Currently on albuterol and mometasone inhalers.), Sleep Apnea Other Respiratory History: with Gastrointestinal History: Reports: Other (See Below) Other Gastrointestinal History: hepatic stenosis Genitourinary History: Reports: Renal Calculus 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: , 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 (See Below) 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 BENCH ASSEMBLY INSPECTOR History: ovarian cyst Musculoskeletal History: Reports: None Neurological History: Reports: None Psychiatric History: Reports: Anxiety, Other (See Below) Other Psychiatric History: insomnia Endocrine/Metabolic History: Reports: Obesity/BMI 30+ Hematologic History: Reports: None Immunologic History: Reports: None Oncologic (Cancer) History: Reports: None Dermatologic History: Reports: Other (See Below) Other Dermatologic History: subcutaneous nodules, boils - Past Surgical History Head Surgeries/Procedures: Reports: None HEENT Surgical History: Reports: None Cardiovascular Surgical History: Reports: None Respiratory Surgical History: Reports: None GI Surgical History: Reports: Colonoscopy Female Surgical History: Reports: Section, Hysterectomy Neurological Surgical History: Reports: None Musculoskeletal Surgical History: Reports: None Oncologic Surgical History: Reports: None Dermatological Surgical History: Reports: None Social & Family History - Tobacco Use Tobacco Use Status *Q: Never Tobacco User - Caffeine Use Caffeine Use: Reports: None - Recreational Drug Use Recreational Drug Use: No - Living Situation & Occupation Living situation: Reports: , Alone 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 Denies: Fever, Chills HEENT: Reports: No Symptoms Respiratory: Reports: Shortness of Breath, Wheezing (Wheezing more today.) Cardiovascular: Reports: No Symptoms Endocrine: Reports: Fatigue GI/Abdominal: Reports: Other (Abdominal pain at the site of recent laparoscopic surgery for gastric sleeve procedure. She reports current weight is 283 pounds.) : Reports: No Symptoms Musculoskeletal: Reports: Joint Pain (Sips low back and neck at times.) Skin: Reports: Dryness, Urticaria (Contact dermatitis scaly lesions abdominal wall at site of Steri-Strip application. Recent development of generalized urticaria), Other Neurological: Reports: No Symptoms Psychiatric: Reports: No Symptoms Hematologic/Lymphatic: Reports: No Symptoms Immunologic: Reports: No Symptoms ED EXAM, SKIN/RASH Exam: See Below Exam Limited By: No Limitations General Appearance: Alert, WD/WN, No Apparent Distress, Other (Temperature is 36.3 with a heart rate of 74. Respiratory is 13 with O2 sats 100% room air BP 150/70.) Eye Exam: Bilateral Eye: Normal Inspection (No scleral icterus or blepharal pallor.), PERRL Ears: Normal TMs Throat/Mouth: Other (Uvula and floor of the mouth are normal.) Head: Atraumatic ( Donation is normal.), Normocephalic Neck: Normal Inspection, Supple, Non-Tender, Full Range of Motion. No: Carotid Bruit, Lymphadenopathy (L), Lymphadenopathy (R) Respiratory/Chest: No Respiratory Distress, Lungs Clear, Normal Breath Sounds, No Accessory Muscle Use. No: Rhonchi, Wheezing Cardiovascular: Normal Peripheral Pulses, Regular Rate, Rhythm, No Edema, No Gallop, No Murmur, No Rub Peripheral Pulses: 2+: Posterior Tibial (L), Posterior Tibial (R), Dorsalis Pedis (L), Dorsalis Pedis (R), 3+: Carotid (L), Carotid (R) GI/Abdominal: Other (The abdomen is fairly obese. Recent surgical scars from laparoscopic procedure for gastric sleeve are healing adequately. There is evidence of contact dermatitis with scaling slightly erythematous dermatitis zane rounding the laparoscopic wounds where the Steri-Strips have been placed. She reports these are fading and are no longer very itchy.) Extremities: Normal Inspection, Normal Range of Motion, Non-Tender, No Pedal Edema Neurological: Alert, Oriented, CN II-XII Intact, Normal Cognition Psychiatric: Normal Affect, Normal Mood Skin: Warm, Dry, Intact, Normal Color, Other (She has generalized urticaria involving all of her extremities axilla and groin are the worst.) Location, Skin: Generalized (Generalized urticaria involving all of her extremities in particular her axilla and groins. It also involves the abdominal wall the chest wall and the back.) Characteristics: Urticarial Course - Vital Signs Last Recorded V/S: Last Vital Signs Temp 36.3 C 05/11/20 16:02 Pulse 74 05/11/20 16:02 Resp 13 05/11/20 16:02 BP 150/70 H 05/11/20 16:02 Pulse Ox 100 05/11/20 16:02 - Orders/Labs/Meds Meds: Medications Discontinued Medications Generic Name Dose Route Start Last Admin Trade Name Freq PRN Reason Stop Dose Admin Prednisone 30 mg 05/11/20 16:13 05/11/20 16:37 Prednisone PO 05/11/20 16:14 30 mg ONETIME ONE Administration - Radiology Interpretation Free Text/Narrative:: 45-year-old female presents to the ED with generalized urticaria x3-1/2 days duration. It appears that the nidus for the development of urticaria is Steri- Strip glue which was applied to her abdominal laparoscopic wounds post gastric sleeve procedure done April 30 in [place]. She has no past history of urticaria. She is currently on no new medications. She has been on prednisone 40 mg once daily in the morning with no relief of the urticaria. She continues to use Benadryl 50 mg and sometimes 75 mg every 6 hours. The plan will be to place her on 20 mg twice daily and spread out the steroid use. She may require 20 mg 3 times daily due to her weight of [address] her on Zyrtec 10 mg a day in hopes of gaining control of chronic urticaria. Her urticaria hopefully will respond to 20 mg of prednisone spaced out over twice daily for another 5 days. I have given her 5 days of double dosing and then once daily in the morning for another 5 days. Follow-up as needed. Continue Benadryl as needed. Departure - Departure Time of Disposition: 16:16 Disposition: Home, Self-Care 01 Condition: Fair Clinical Impression: Urticaria - Discharge Information *PRESCRIPTION DRUG MONITORING PROGRAM REVIEWED*: Not Applicable *COPY OF PRESCRIPTION DRUG MONITORING REPORT IN PATIENT DAVIE: Not Applicable Prescriptions: predniSONE [Prednisone] 20 mg PO BID #15 tablet Instructions: Hives Referrals: Madison Villafuerte NP [Primary Care Provider] - Forms: ED Department Discharge Additional Instructions: Evaluation in the emergency room today in regards to continued problems with urticaria that seem to start after development of allergic reaction to Steri- Strips glue placed on abdominal wounds after surgery April 30. Currently 20 mg of prednisone once daily in the morning is not doing the trick in terms of controlling the hives. Outbreaks continue all over your body. Suggest increasing your prednisone to 20 mg twice daily for another 5 days and then once daily in the morning for another 5 days. Continue Benadryl 50 to 75 mg every 6 hours. Suggest adding Zyrtec 10 mg once daily to your treatment plan as well and I would suggest using it for about 2 weeks. Usually the steroid is taken with breakfast and supper daily and first thing in the morning with breakfast meal. Expect marked improvement over the next 24 to 48 hours Sepsis Event Note (ED) - Evaluation Sepsis Screening Result: No Definite Risk - Focused Exam Vital Signs: Vital Signs Temp Pulse Resp BP Pulse Ox 05/11/20 16:02 36.3 C 74 13 150/70 H 100
== END 2020-05-11 17:14 | disposition home or self-care (01) ==
LOC: JD.ED 15:47
DX: L50.9 Urticaria, unspecified (principal); I10 Essential (primary) hypertension; J45.909 Unspecified asthma, uncomplicated; F41.9 Anxiety disorder, unspecified; E66.9 Obesity, unspecified; Z68.43 Body mass index [BMI] 50.0-59.9, adult; Z79.899 Other long term (current) drug therapy
CPT/HCPCS: 99283; J7512

== ENCOUNTER 2020-07-15 14:40 | Emergency (ER) | payer OTHER ==
[2020-07-15 15:19] VITALS: BP 135/91; PULSE 67
--- NOTE | 2020-07-15 15:41 | EDM.PDOC ---
ED HPI GENERAL MEDICAL PROBLEM - General Chief Complaint: Gastrointestinal Problem Stated Complaint: DIZZY/WEAK Time Seen by Provider: 07/15/20 15:14 Source of Information: Reports: Patient, RN Notes Reviewed History Limitations: Reports: No Limitations - History of Present Illness INITIAL COMMENTS - FREE TEXT/NARRATIVE: Patient is a 45-year-old female who presents to the ED for the evaluation of her possible dehydration. Patient states that she had a gastric sleeve done at the end of April 2020, and she notes over the last few days, she feels slightly dehydrated and she is just not wanting to eat much. She states that she ate and drank a little bit yesterday, but did not really want to eat much today as the thought of food made her stomach turn. She did not take her Zofran at home for nausea management, as she was not vomiting. Patient states that her appetite is just been lacking for the better words. She also is complaining of her urine being really dark. Patient's primary care provider is Madison Villafuerte, and she notes that she had labs taken on Tuesday due to ongoing symptoms but everything was within normal limits, she was not anemic, and there were no other focal abnormalities. Patient's had no fevers or chills, cough or shortness of breath or any sort of body aches. She states that she is just generally lethargic, and just tired. Again she states that she has not eaten anything today but states she was able to keep food and fluids down yesterday. - Related Data Allergies Allergy/AdvReac Type Severity Reaction Status Date / Time No Known Allergies Allergy Verified 07/15/20 15:12 Home Meds: Home Meds Mometasone Furoate [Elocon] 1 dose TOP ASDIRECTED PRN 10/27/17 [History] Albuterol [Ventolin HFA] 2 puff .XX Q4H PRN #1 inhaler 07/23/19 [Rx] Sertraline [Zoloft] 25 mg PO DAILY 05/09/20 [History] Zolpidem [Ambien] 10 mg PO DAILY 05/09/20 [History] Magnesium 1,000 mg PO DAILY 07/15/20 [History] Mecobalamin [B-12] 5,000 mcg PO DAILY 07/15/20 [History] Multivit-Min/Iron/Folic Acid/K [Bariatric Mv-Iron 45 mg Cap] 1 each PO DAILY 07/15/20 [History] Pantoprazole Sodium [Protonix] 40 mg PO DAILY 07/15/20 [History] Past Medical History HEENT History: Reports: Impaired Vision Cardiovascular History: Reports: Hypertension Respiratory History: Reports: Asthma, Sleep Apnea Other Respiratory History: with Gastrointestinal History: Reports: Other (See Below) Other Gastrointestinal History: hepatic stenosis. 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 Psychiatric History: Reports: Anxiety, Other (See Below) Other Psychiatric History: insomnia Endocrine/Metabolic History: Reports: Obesity/BMI 30+ Dermatologic History: Reports: Other (See Below) Other Dermatologic History: subcutaneous nodules, boils - Infectious Disease History Infectious Disease History: Reports: Chicken Pox, Influenza, Scarlet Fever - Past Surgical History GI Surgical History: Reports: Bariatric Procedure (gastric sleeve 04/29/2020), Colonoscopy Female Surgical History: Reports: Section, Hysterectomy Social & Family History - Family History Family Medical History: No Pertinent Family History Cardiac: Reports: CAD, Heart Failure, Hypertension GI: Reports: Cirrhosis Endocrine/Metabolic: Reports: Diabetes, type II - Tobacco Use Tobacco Use Status *Q: Former Tobacco User Used Tobacco, but Quit: Yes Month/Year Tobacco Last Used: 02/23 - Caffeine Use Caffeine Use: Reports: Coffee - Recreational Drug Use Recreational Drug Use: Yes Drug Use in Last 12 Months: No Recreational Drug Type: Reports: Cocaine, Marijuana/Hashish, Methamphetamine Recreational Drug Use Frequency: Not Used In Over 1 Year - Living Situation & Occupation Living situation: Reports: , Alone 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 ED EXAM, GI/ABD - Physical Exam Exam: See Below Exam Limited By: No Limitations General Appearance: Alert, WD/WN, No Apparent Distress Throat/Mouth: Normal Inspection, Normal Lips, Normal Teeth, Normal Gums, Normal Oropharynx, Normal Voice, No Airway Compromise Respiratory/Chest: No Respiratory Distress, Lungs Clear, Normal Breath Sounds, No Accessory Muscle Use, Chest Non-Tender Cardiovascular: Normal Peripheral Pulses, Regular Rate, Rhythm, No Edema, No Murmur GI/Abdominal Exam: Normal Bowel Sounds, Soft, Non-Tender, No Distention, No Mass Extremities: Normal Inspection, Normal Capillary Refill Neurological: Alert, Oriented, Normal Cognition, No Motor/Sensory Deficits Psychiatric: Normal Affect, Normal Mood Skin Exam: Warm, Dry, Intact, Normal Color, No Rash Course - Vital Signs Last Recorded V/S: Last Vital Signs Temp 98.4 F 07/15/20 15:17 Pulse 67 07/15/20 15:17 Resp 18 07/15/20 15:17 BP 135/91 H 07/15/20 15:17 Pulse Ox 97 07/15/20 15:17 Orthostatic Blood Pressure [ 140/101 Standing] Orthostatic Blood Pressure [ 148/105 Sitting] Orthostatic Blood Pressure [ 143/98 Supine] - Orders/Labs/Meds Orders: Active Orders 24 hr Category Date Time Status Orthostatic Vital Signs [RC] ASDIRECTED Care 07/15/20 15:33 Ordered - Re-Assessments/Exams Free Text/Narrative Re-Assessment/Exam: 07/15/20 15:42 Patient presents to the ED for the evaluation of her generalized lethargy and possible dehydration, we will go ahead and get orthostatic vital signs for evaluation, patient's mucous membranes are still moist, she was able to keep foods down however she states she just felt a little bit nauseous this morning after thinking about food. At this point in time I do not believe she would be a good candidate for IV rehydration as her history and physical are suggestive of her not being dehydrated. 07/15/20 16:34 Nursing staff reports the patient's orthostatics are not positive. Due to the patient's reported only nausea when she thinks about eating, I will have her take her Zofran prior to meals, and stick to multiple small frequent meals throughout the day instead of a few larger ones. She will also be directed to stick to clear liquids like Gatorade/Powerade if she cannot stand the thought of solid foods. Departure - Departure Time of Disposition: 16:35 Disposition: Home, Self-Care 01 Condition: Good Clinical Impression: Nausea - Discharge Information *PRESCRIPTION DRUG MONITORING PROGRAM REVIEWED*: No *COPY OF PRESCRIPTION DRUG MONITORING REPORT IN PATIENT DAVIE: No Instructions: Nausea, Adult, [id number] Referrals: Madison Villafuerte NP [Primary Care Provider] - Forms: ED Department Discharge Additional Instructions: You have been evaluated in the ED for nausea/possible dehydration. Your blood pressures in the ER today, indicating that you are in fact not dehydrated by clinical standards. Over the next 24-48 hours please try to limit diet to clear liquids and advance as tolerate to a bland diet to alleviate symptoms of nausea. Recommend that you use the Zofran every 6-8 hours before meals for nausea control. This is even if you are not vomiting, Zofran is used to control nausea. Recommend you stick to multiple small meals throughout the day, rather than a few larger ones, this might help keep your nutrition/appetite in check. Please return to the ED if your symptoms should change or worsen. Sepsis Event Note (ED) - Evaluation Sepsis Screening Result: No Definite Risk - Focused Exam Vital Signs: Vital Signs Temp Pulse Resp BP Pulse Ox 07/15/20 15:17 98.4 F 67 18 135/91 H 97 - My Orders Last 24 Hours: My Active Orders 07/15/20 15:33 Orthostatic Vital Signs [RC] ASDIRECTED - Assessment/Plan Last 24 Hours: My Active Orders 07/15/20 15:33 Orthostatic Vital Signs [RC] ASDIRECTED
== END 2020-07-15 16:45 | disposition home or self-care (01) ==
LOC: JD.ED 14:40
DX: R11.0 Nausea (principal); R53.83 Other fatigue; E66.9 Obesity, unspecified; I10 Essential (primary) hypertension; J45.909 Unspecified asthma, uncomplicated; Z87.891 Personal history of nicotine dependence; Z68.43 Body mass index [BMI] 50.0-59.9, adult
CPT/HCPCS: 99283

== ENCOUNTER 2021-01-16 22:33 | Emergency (ER) | payer OTHER ==
[2021-01-16 22:43] VITALS: BP 194/128; PULSE 81
[2021-01-16] MEDS ORDERED: Orphenadrine 100 MG Tab.ER PO STA (23:21)
[2021-01-16] MEDS ORDERED: Ibuprofen 600 MG Tab PO ONE (23:21)
--- NOTE | 2021-01-16 23:27 | EDM.PDOC ---
ED HPI GENERAL MEDICAL PROBLEM - General Chief Complaint: Chest Pain Stated Complaint: CHEST PAIN Time Seen by Provider: 01/16/21 22:47 Source of Information: Reports: Patient, Family (Daughter) History Limitations: Reports: No Limitations - History of Present Illness INITIAL COMMENTS - FREE TEXT/NARRATIVE: Ms. Woodward is a pleasant 46-year-old woman who now presents the ED stating that she developed sudden-onset sharp left-sided chest pain around 2215 this evening, when she got up. She states that the pain has steadily decreased since then, and that it is now a dull ache. She feels better if she sits upright, but worse if she lies back or takes a deep breath. She states that she had 5 to 10 minutes of dyspnea, initially, which has since resolved. She states that she has felt slightly nauseated, and that she felt a bit diaphoretic around the time she came to the ED. No prior similar symptoms. The patient states that she took some TUMS earlier tonight, which did not help. Here in the ED, the patient's initial BP was found to be significantly elevated at 194/128, however, her blood pressure subsequently decreased considerably without treatment. She is afebrile, saturating 98% on room air. She appears to be relatively comfortable, in no acute distress. Prior to this evening, the patient denies having a recent fever, chills, sore throat, ear pain, nasal or sinus congestion, cough, dyspnea, chest pain, palpitations, nausea, vomiting, constipation, diarrhea, abdominal pain, urinary symptoms, recent weight gain or weight loss, recent bloody bowel movements or black bowel movements, recent joint aches, headaches, or rashes. The patient's PCP is Madison Villafuerte NP. She does not recall the name of her Bariatric Surgeon in [place]. Left Chest Pain Score (Numeric/FACES): 7 - Related Data Allergies Allergy/AdvReac Type Severity Reaction Status Date / Time No Known Allergies Allergy Verified 01/16/21 22:43 Home Meds: Home Meds Albuterol [Ventolin HFA] 2 puff .XX Q4H PRN #1 inhaler 07/23/19 [Rx] Zolpidem [Ambien] 10 mg PO DAILY 05/09/20 [History] Magnesium 1,000 mg PO DAILY 07/15/20 [History] Mecobalamin [B-12] 5,000 mcg PO DAILY 07/15/20 [History] Multivit-Min/Iron/Folic Acid/K [Bariatric Mv-Iron 45 mg Cap] 1 each PO DAILY 07/15/20 [History] Pantoprazole Sodium [Protonix] 40 mg PO DAILY 07/15/20 [History] Orphenadrine [Norflex] 1 tab PO Q12H PRN #14 tab.er 01/17/21 [Rx] Past Medical History HEENT History: Reports: Impaired Vision Cardiovascular History: Reports: Hypertension (untreated) Respiratory History: Reports: Sleep Apnea (nightly CPAP) Gastrointestinal History: Reports: Other (See Below) (Hepatic steatosis) Genitourinary History: Reports: Renal Calculus 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 (See Below) (Ovarian cyst) Psychiatric History: Reports: Anxiety, Other (See Below) (Insomnia) Endocrine/Metabolic History: Reports: Obesity/BMI 30+ - Infectious Disease History Infectious Disease History: Reports: Chicken Pox, Scarlet Fever - Past Surgical History HEENT Surgical History: Reports: Oral Surgery (dental extractions) GI Surgical History: Reports: Bariatric Procedure (laparoscopic sleeve gastrect john Apr 2020), Colonoscopy (x 2) Female Surgical History: Reports: Section (x 1), Hysterectomy (partial) Social & Family History - Tobacco Use Tobacco Use Status *Q: Current Every Day Tobacco User Years of Tobacco use: 32 Packs/Tins Daily: 0.4 Tobacco Use Comment: Started smoking at 14 yrs old - Caffeine Use Caffeine Use: Reports: None - Alcohol Use Alcohol Use History: Yes Alcohol Use Frequency: Socially - Recreational Drug Use Recreational Drug Use: No - Living Situation & Occupation Living situation: Reports: , Alone 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 ED EXAM, GENERAL - Physical Exam Exam: See Below Exam Limited By: No Limitations General Appearance: Alert, WD/WN, No Apparent Distress Eye Exam: Bilateral Eye: EOMI, Normal Inspection Ears: Normal External Exam, Hearing Grossly Normal Nose: Normal Inspection Throat/Mouth: Normal Inspection, Normal Lips, Normal Voice, No Airway Compromise Head: Atraumatic, Normocephalic Neck: Normal Inspection, Full Range of Motion Respiratory/Chest: No Respiratory Distress, Lungs Clear, Normal Breath Sounds, No Accessory Muscle Use, Other (The pain is reproduced by having the patient take a deep breath, with direct palpation of the anterior left chest, or with having her cross her left upper extremity across her chest. Pain is not reproduced by having her press her hands together with her arms outstretched in front of her.). No: Decreased Breath Sounds, Crackles, Rhonchi, Wheezing, Stridor, Pleural Rub (including over the anterior left chest), Prolonged Expiration Cardiovascular: Normal Peripheral Pulses, Regular Rate, Rhythm, No Gallop, No JVD, No Murmur, No Rub Peripheral Pulses: 3+: Radial (L), Radial (R) GI/Abdominal: Normal Bowel Sounds, Soft, Non-Tender, No Organomegaly, No Distention, No Abnormal Bruit, No Mass Back Exam: Normal Inspection, Full Range of Motion, NT Extremities: Normal Inspection, Normal Range of Motion, No Pedal Edema, Normal Capillary Refill Neurological: Alert, Oriented, Normal Cognition, No Motor/Sensory Deficits Psychiatric: Normal Affect Skin Exam: Warm, Dry, Intact, Normal Color, No Rash #1 Interpretation EKG Date: 01/16/21 Time: 22:48 Rhythm: Other (Ectopic atrial rhythm) Rate (Beats/Min): 79 [place]: Normal QRS: Other (Poor R wave progression) ST-T: Normal QT: Normal Comparison: NA - No Prior EKG Course - Vital Signs Last Recorded V/S: Last Vital Signs Temp 36.1 C 01/16/21 22:40 Pulse 81 01/16/21 22:40 Resp 18 01/16/21 22:40 BP 194/128 H 01/16/21 22:40 Pulse Ox 98 01/16/21 22:40 - Orders/Labs/Meds Orders: Active Orders 24 hr Category Date Time Status Chest 2V [CR] Stat Exams 01/16/21 23:20 Taken Labs: Laboratory Tests 01/16/21 01/16/21 01/16/21 Range/Units 22:58 22:58 22:58 WBC 9.35 (3.98-10.04) K/mm3 RBC 4.49 (3.98-5.22) M/mm3 Hgb 13.8 (11.2-15.7) gm/dl Hct 41.0 (34.1-44.9) % MCV 91.3 D (79.4-94.8) fl MCH 30.7 (25.6-32.2) pg MCHC 33.7 (32.2-35.5) g/dl RDW Std Deviation 42.8 (36.4-46.3) fL Plt Count 375 H (182-369) K/mm3 MPV 9.2 L (9.4-12.3) fl Neutrophils % (Manual) 77 H (40-60) % Band Neutrophils % 0 (0-10) % Lymphocytes % (Manual) 15 L (20-40) % Atypical Lymphs % 0 % Monocytes % (Manual) 7 (2-10) % Eosinophils % (Manual) 1 (0.7-5.8) % Basophils % (Manual) 0 L (0.1-1.2) Platelet Estimate Adequate RBC Morph Comment Normal D-Dimer, Quantitative 0.35 (0.19-0.50) mg/L Sodium 141 (136-145) mEq/L Potassium 3.7 (3.5-5.1) mEq/L Chloride 106 (98-107) mEq/L Carbon Dioxide 27 (21-32) mEq/L Anion Gap 11.7 (5-15) BUN 12 (7-18) mg/dL Creatinine 0.8 (0.55-1.02) mg/dL Est Cr Clr Drug Dosing 74.23 mL/min Estimated GFR (MDRD) > 60 (>60) mL/min BUN/Creatinine Ratio 15.0 (14-18) Glucose 109 H (70-99) mg/dL Calcium 8.7 (8.5-10.1) mg/dL Total Bilirubin 0.3 (0.2-1.0) mg/dL AST 19 (15-37) U/L ALT 39 (14-59) U/L Alkaline Phosphatase 89 (46-116) U/L Troponin I < 0.017 (0.00-0.056) ng/mL NT-Pro-B Natriuret Pep (0-125) pg/mL Total Protein 7.4 (6.4-8.2) g/dl Albumin 3.7 (3.4-5.0) g/dl Globulin 3.7 gm/dL Albumin/Globulin Ratio 1.0 (1-2) 01/16/ Range/Units 22:58 WBC (3.98-10.04) K/mm3 RBC (3.98-5.22) M/mm3 Hgb (11.2-15.7) gm/dl Hct (34.1-44.9) % MCV (79.4-94.8) fl MCH (25.6-32.2) pg MCHC (32.2-35.5) g/dl RDW Std Deviation (36.4-46.3) fL Plt Count (182-369) K/mm3 MPV (9.4-12.3) fl Neutrophils % (Manual) (40-60) % Band Neutrophils % (0-10) % Lymphocytes % (Manual) (20-40) % Atypical Lymphs % % Monocytes % (Manual) (2-10) % Eosinophils % (Manual) (0.7-5.8) % Basophils % (Manual) (0.1-1.2) Platelet Estimate RBC Morph Comment D-Dimer, Quantitative (0.19-0.50) mg/L Sodium (136-145) mEq/L Potassium (3.5-5.1) mEq/L Chloride (98-107) mEq/L Carbon Dioxide (21-32) mEq/L Anion Gap (5-15) BUN (7-18) mg/dL Creatinine (0.55-1.02) mg/dL Est Cr Clr Drug Dosing mL/min Estimated GFR (MDRD) (>60) mL/min BUN/Creatinine Ratio (14-18) Glucose (70-99) mg/dL Calcium (8.5-10.1) mg/dL Total Bilirubin (0.2-1.0) mg/dL AST (15-37) U/L ALT (14-59) U/L Alkaline Phosphatase (46-116) U/L Troponin I (0.00-0.056) ng/mL NT-Pro-B Natriuret Pep 167 H (0-125) pg/mL Total Protein (6.4-8.2) g/dl Albumin (3.4-5.0) g/dl Globulin gm/dL Albumin/Globulin Ratio (1-2) Meds: Medications Discontinued Medications Generic Name Dose Route Start Last Admin Trade Name Freq PRN Reason Stop Dose Admin Acetaminophen 650 mg 01/16/21 23:37 01/16/21 23:42 Acetaminophen 325 Mg Tab PO 01/16/21 23:38 650 mg NOW ONE Administration Ibuprofen 600 mg 01/16/21 23:21 Ibuprofen 600 Mg Tab PO 01/16/21 23:22 ONETIME ONE Orphenadrine Citrate 100 mg 01/16/21 23:21 01/16/21 23:43 Orphenadrine 100 Mg Tab.Er PO 01/16/21 23:22 100 mg ONETIME STA Administration - Re-Assessments/Exams Free Text/Narrative Re-Assessment/Exam: 01/16/21 23:23 As above, the patient developed sudden-onset left-sided sharp chest pain which is improved if she is upright, worse if she is supine, or she takes a deep breath. She states that at present the pain has decreased to a dull ache. She had 5 to 10 minutes of dyspnea, initially, which has since resolved. She states that she initially felt slightly nauseated, and that she had some diaphoresis when she came to the ED. An ECG, obtained at triage, shows no ischemic changes. On examination, the patient's pain is inducible by having her take a deep breath, although there is no rub to the left chest on auscultation. Her pain is also reproducible with direct palpation and with having her cross her left upper extremity across her chest, however, not by having her press her hands together with outstretched arms in front of her. I have ordered a work-up and includes several blood tests and a chest x-ray. In the meantime, since her presentation appears to be musculoskeletal in etiology, I have ordered ibuprofen and Norflex. 01/16/21 23:38 Notified by Latonia that the patient prefers acetaminophen over ibuprofen. So ordered. 01/17/21 00:37 Two-view chest radiograph reviewed. Poor inspiratory effort. The cardiac silhouette is within normal limits. No pulmonary vascular congestion. No pleural effusions. No focal infiltrate. No pneumothorax. Formal read per the Radiologist pending. The patient's CBC is remarkable for mild thrombocytosis of 375,000, with the remainder of her CBC being unremarkable. Her CMP is remarkable for slight hyperglycemia of 109, and is otherwise unremarkable. Her troponin is undetectably low. Her D-dimer is within normal limits at 0.35. Her pro-BNP is slightly elevated at 167. 01/17/21 00:43 Test results discussed with the patient. Since her pain appears to be musculoskeletal in etiology, I recommended Norflex. Ordinarily, Norflex works best with an NSAID, such as ibuprofen, however, since the patient underwent a laparoscopic sleeve gastrectomy in April 2020, I advised against her taking NSAIDs. I advised her to take acetaminophen. She states that she takes Excedrin sometimes, which contains aspirin. Departure - Departure Time of Disposition: 00:46 Disposition: Home, Self-Care 01 Condition: Good Clinical Impression: Musculoskeletal chest pain - Discharge Information *PRESCRIPTION DRUG MONITORING PROGRAM REVIEWED*: Not Applicable *COPY OF PRESCRIPTION DRUG MONITORING REPORT IN PATIENT DAVIE: Not Applicable Prescriptions: Orphenadrine [Norflex] 1 tab PO Q12H PRN #14 tab.er PRN Reason: Muscle Spasm - Painful Instructions: Nonspecific Chest Pain, Adult, [id number] Referrals: Madison Villafuerte NP [Primary Care Provider] - Forms: ED Department Discharge Additional Instructions: You were seen in the emergency room after developing left-sided chest pain, along with some shortness of breath, some nausea, and sweatiness, tonight. Work-up in the ER included numerous blood tests, a chest x-ray, and an ECG. Your entire work-up was unremarkable. You have not suffered a heart attack. You do not have a blood clot in your lungs. You do not have pneumonia or collap sed lung. Based on your history, physical exam, and ER tests, the cause of your chest pain is most likely musculoskeletal in etiology. You have been started on the muscle relaxant Norflex, and a prescription for Norflex has been sent to the [place] [facility], located in the [facility] grocery store. Take 1 tablet of Norflex every 12 hours, starting this morning, 01/17/2021, as prescribed. Ordinarily, Norflex works well with NSAIDs, however, since you are not permitted to take NSAIDs, we recommend you take the Norflex with [id number] acetaminophen (Tylenol). If any other problems, please do not hesitate to return to the ER. Sepsis Event Note (ED) - Evaluation Sepsis Screening Result: No Definite Risk - Focused Exam Vital Signs: Vital Signs Temp Pulse Resp BP Pulse Ox 01/16/21 22:40 36.1 C 81 18 194/128 H 98 - My Orders Last 24 Hours: My Active Orders 01/16/21 23:20 Chest 2V [CR] Stat - Assessment/Plan Last 24 Hours: My Active Orders 01/16/21 23:20 Chest 2V [CR] Stat
[2021-01-16] MEDS ORDERED: Acetaminophen 325 MG Tab PO ONE (23:37)
--- NOTE | 2021-01-17 09:13 | CR ---
Chest: PA and lateral views of the chest were obtained. Comparison: No previous chest imaging is available. Heart size is normal. Slight tortuosity of the thoracic aorta is seen. Lungs are clear and no acute parenchymal change. No acute osseous abnormality is appreciated. Impression: 1. Nothing acute is seen on 2 view chest x-ray. Diagnostic code #2
== END 2021-01-17 01:02 | disposition home or self-care (01) ==
LOC: JD.ED 22:33
DX: R07.89 Other chest pain (principal); I10 Essential (primary) hypertension; E66.9 Obesity, unspecified; F17.210 Nicotine dependence, cigarettes, uncomplicated; Z68.43 Body mass index [BMI] 50.0-59.9, adult; Z79.899 Other long term (current) drug therapy
CPT/HCPCS: 36415; 71046; 80053; 83880; 84484; 85007; 85027; 85379; 93005; 99285; A9270; 93010; 99284

== ENCOUNTER 2021-07-08 09:30 | Emergency (ER) | payer BC ==
[2021-07-08 09:52] VITALS: BP 162/102; PULSE 93
[2021-07-08] MEDS ORDERED: Sodium Chloride 0.9% 10 ML Syringe FLUSH PRN (10:09)
[2021-07-08] MEDS ORDERED: Sodium Chloride 0.9% 1,000 ML IV ONE (10:09)
[2021-07-08] MEDS ORDERED: HYDROmorphone 1 MG/ML Syringe IVPUSH ONE (10:10)
[2021-07-08] MEDS ORDERED: Ketorolac 30 MG/ML SDV IVPUSH ONE (10:10)
[2021-07-08] MEDS ORDERED: Ondansetron 4 MG/2 ML SDV IVPUSH ONE (10:12)
== END 2021-07-08 12:15 | disposition home or self-care (01) ==
LOC: JD.ED 09:30
DX: M62.830 Muscle spasm of back (principal); N83.202 Unspecified ovarian cyst, left side; I10 Essential (primary) hypertension; E66.9 Obesity, unspecified; Z68.31 Body mass index [BMI] 31.0-31.9, adult; Z72.0 Tobacco use
CPT/HCPCS: 36415; 74176; 80053; 81003; 85025; 96374; 96375; 99284; J1170; J1885; J2405; J7030

== ENCOUNTER 2021-11-27 09:57 | Emergency (ER) | payer BC ==
[2021-11-27 11:47] VITALS: PULSE 80
[2021-11-27] MEDS ORDERED: Ketorolac 60 MG/2 ML SDV IM ONE (12:14)
[2021-11-27 19:57] VITALS: BP 156/92
== END 2021-11-27 13:38 | disposition home or self-care (01) ==
LOC: JD.ED 09:57
DX: M79.602 Pain in left arm (principal); I10 Essential (primary) hypertension; F41.9 Anxiety disorder, unspecified; E66.9 Obesity, unspecified; Z68.42 Body mass index [BMI] 45.0-49.9, adult; Z79.899 Other long term (current) drug therapy
CPT/HCPCS: 36415; 80053; 81001; 84484; 84703; 85025; 93005; 96372; 99283; J1885

== ENCOUNTER 2022-02-03 09:28 | Day surgery (SDC) | payer BC ==
[~2022-02-03 09:28] MED LIST changes: +Sodium Chloride 0.9% 10 ML Syringe FLUSH SCH
[2022-02-03] MEDS ORDERED: Lidocaine 1% 4 ML ONE (11:16)
[2022-02-03] MEDS ORDERED: Propofol 200 MG/20 ML SDV ONE ×4 (11:16→11:53)
[2022-02-03] MEDS ORDERED: Midazolam 1 MG/ML 2 ML SDV ONE (11:29)
[2022-02-03] MEDS ORDERED: Bupivacaine 0.5% 30 ML SDV ONE (11:46)
[2022-02-03 12:53] VITALS: BP 167/102; PULSE 78
== END 2022-02-03 12:45 | disposition home or self-care (01) ==
LOC: JD.SDS 09:28
PROVIDERS: ATTEND Surgery
DX: Z12.11 Encounter for screening for malignant neoplasm of colon (principal); D12.0 Benign neoplasm of cecum; K21.9 Gastro-esophageal reflux disease without esophagitis; K31.89 Other diseases of stomach and duodenum; K57.30 Diverticulosis of large intestine without perforation or abscess without bleeding; K29.70 Gastritis, unspecified, without bleeding; K64.4 Residual hemorrhoidal skin tags; I10 Essential (primary) hypertension; E11.9 Type 2 diabetes mellitus without complications; F41.9 Anxiety disorder, unspecified; E66.9 Obesity, unspecified; G47.33 Obstructive sleep apnea (adult) (pediatric); G43.909 Migraine, unspecified, not intractable, without status migrainosus; Z68.41 Body mass index [BMI] 40.0-44.9, adult; Z90.710 Acquired absence of both cervix and uterus; Z98.890 Other specified postprocedural states; Z91.048 Other nonmedicinal substance allergy status; Z87.891 Personal history of nicotine dependence
CPT/HCPCS: 43239; 45380; J2250; J2704; J3490; J7120

== ENCOUNTER 2022-02-25 18:38 | Emergency (ER) | payer BC ==
[2022-02-25 19:10] VITALS: BP 145/78; PULSE 88
[2022-02-25 20:20] LABS: CORONAVIRUS COVID-19 NAA NEGATIVE (NEGATIVE)
== END 2022-02-25 20:20 | disposition home or self-care (01) ==
LOC: JD.ED 18:38
DX: J02.9 Acute pharyngitis, unspecified (principal); I10 Essential (primary) hypertension; E11.9 Type 2 diabetes mellitus without complications; E66.9 Obesity, unspecified; Z68.41 Body mass index [BMI] 40.0-44.9, adult; Z91.048 Other nonmedicinal substance allergy status; Z88.8 Allergy status to other drugs, medicaments and biological substances; Z79.84 Long term (current) use of oral hypoglycemic drugs; Z90.710 Acquired absence of both cervix and uterus; Z20.822 Contact with and (suspected) exposure to COVID-19
CPT/HCPCS: 0240U; 87651; 99283; 99282

== ENCOUNTER 2022-09-27 12:59 | Emergency (ER) | payer BC ==
[2022-09-27] MEDS ORDERED: Ketorolac 60 MG/2 ML SDV IM ONE (13:19)
[2022-09-27] MEDS ORDERED: Cyclobenzaprine 10 MG Tab PO ONE (14:29)
[2022-09-27 22:00] VITALS: BP 136/84; PULSE 82
== END 2022-09-27 14:54 | disposition home or self-care (01) ==
LOC: JD.ED 12:59
DX: M62.830 Muscle spasm of back (principal); E11.9 Type 2 diabetes mellitus without complications; E66.9 Obesity, unspecified; J45.909 Unspecified asthma, uncomplicated; I10 Essential (primary) hypertension; Z68.44 Body mass index [BMI] 60.0-69.9, adult; Z79.4 Long term (current) use of insulin; Z79.84 Long term (current) use of oral hypoglycemic drugs; Z79.899 Other long term (current) drug therapy; Z91.048 Other nonmedicinal substance allergy status
CPT/HCPCS: 81001; 96372; 99283; A9270; J1885

== ENCOUNTER 2022-12-21 18:37 | Emergency (ER) | payer BC ==
[2022-12-21] MEDS ORDERED: Sodium Chloride 0.9% 10 ML Syringe FLUSH PRN (18:59)
[2022-12-21] MEDS ORDERED: Sodium Chloride 0.9% 1,000 ML IV STA (18:59)
[2022-12-21] MEDS ORDERED: Ketorolac 30 MG/ML SDV IVPUSH ONE (18:59)
[2022-12-21 19:24] LABS: BASOPHILS ABSOLUTE AUTO 0.01 K/mm3 (0.01-0.08); BASOPHILS PERCENT AUTO 0.2 % (0.1-1.2); EOSINOPHILS ABSOLUTE AUTO 0.11 K/mm3 (0.04-0.36); EOSINOPHILS PERCENT AUTO 1.8 (0.7-5.8); HEMATOCRIT 40.1 % (34.1-44.9); HEMOGLOBIN 13.6 gm/dl (11.2-15.7); IMMATURE GRAN ABSOLUTE AUTO 0.01 K/mm3 (0.00-0.10); IMMATURE GRAN PERCENT AUTO 0.2 % (<=1.0); LYMPHOCYTES ABSOLUTE AUTO 0.85 K/mm3 (1.18-3.74); LYMPHOCYTES PERCENT AUTO 14.1 % (19.3-51.7); MEAN CORPUSCULAR HEMOGLOBIN 29.8 pg (25.6-32.2); MEAN CORPUSCULAR HGB CONC 33.9 g/dl (32.2-35.5); MEAN PLATELET VOLUME 9.4 fl (9.4-12.3); MONOCYTES ABSOLUTE AUTO 0.43 K/mm3 (0.24-0.36); MONOCYTES PERCENT AUTO 7.1 % (4.7-12.5); NEUTROPHILS ABSOLUTE AUTO 4.62 K/mm3 (1.56-6.13); NEUTROPHILS PERCENT AUTO 76.6 % (34.0-71.1); PLATELET COUNT,PLT 360 K/mm3 (182-369); RED BLOOD CELL COUNT 4.57 M/mm3 (3.98-5.22); WHITE BLOOD CELL COUNT,WBC 6.03 K/mm3 (3.98-10.04)
[2022-12-21 19:25] LABS: MEAN CORPUSCULAR VOLUME 87.7 fl (79.4-94.8)
[2022-12-21 19:51] LABS: A/G RATIO 1.1 (1-2); ALBUMIN 3.9 g/dl (3.4-5.0); ANION GAP 14.4 (5-15); BILIRUBIN TOTAL 0.4 mg/dL (0.2-1.0); CALCIUM 9.2 mg/dL (8.5-10.1); EST CRCL DRUG DOSING (CG) 58.77 mL/min; POTASSIUM,K 3.4 mEq/L (3.5-5.1); PROTEIN TOTAL,TP 7.5 g/dl (6.4-8.2)
[2022-12-21 20:42] LABS: BILIRUBIN,URINE NEGATIVE (Negative); COLOR,URINE YELLOW (Yellow); GLUCOSE,URINE NEGATIVE (Negative); KETONES,URINE 1+ (Negative); LEUKOCYTE ESTERASE,URINE TRACE (Negative); NITRITE,URINE POSITIVE (Negative); OCCULT BLOOD,URINE NEGATIVE (Negative); PH,URINE 5.5 (5.0-8.0); PROTEIN,URINE 1+ (Negative); UROBILINOGEN,URINE 0.2 (0.2-1.0)
[2022-12-21 21:02] LABS: APPEARANCE,URINE SLT CLOUDY (Clear)
[2022-12-21 21:03] LABS: BACTERIA,URINE MANY /hpf (FEW); MUCUS,URINE FEW /hpf (FEW); RBC,URINE 0-5 /hpf (0-5)
[2022-12-21] MEDS ORDERED: Cefdinir 300 MG Cap PO ONE (21:12)
[2022-12-21] MEDS ORDERED: Acetaminophen/HYDROcodone 325-5 MG Tab PO ONE (21:16)
[2022-12-21] MEDS ORDERED: Cyclobenzaprine 10 MG Tab PO ONE (21:16)
[2022-12-21 21:35] VITALS: BP 121/69; PULSE 74
== END 2022-12-21 21:30 | disposition home or self-care (01) ==
LOC: JD.ED 18:37
DX: M54.50 Low back pain, unspecified (principal); N39.0 Urinary tract infection, site not specified; I10 Essential (primary) hypertension; F17.210 Nicotine dependence, cigarettes, uncomplicated; E66.9 Obesity, unspecified; Z68.41 Body mass index [BMI] 40.0-44.9, adult; Z91.048 Other nonmedicinal substance allergy status; Z79.899 Other long term (current) drug therapy; Z79.84 Long term (current) use of oral hypoglycemic drugs; Z79.4 Long term (current) use of insulin; Z90.710 Acquired absence of both cervix and uterus
CPT/HCPCS: 36415; 74176; 80053; 81001; 85025; 87086; 96374; 99284; A9270; J1885; J3490; J7030; 87088; 87186

== ENCOUNTER 2023-05-04 00:21 | Emergency (ER) | payer BC ==
[2023-05-04] MEDS ORDERED: Ondansetron 4 MG/2 ML SDV IVPUSH ONE (01:13)
[2023-05-04] MEDS ORDERED: Morphine 4 MG/ML Syringe IVPUSH ONE (01:13)
[2023-05-04] MEDS ORDERED: Sodium Chloride 0.9% 1,000 ML IV SCH (01:15)
[2023-05-04 01:51] LABS: BASOPHILS PERCENT AUTO 0.1 % (0.0-1.0); EOSINOPHILS ABSOLUTE AUTO 0.1 K/mm3 (0.0-0.4); EOSINOPHILS PERCENT AUTO 0.8 % (0.0-6.0); HEMATOCRIT 41.8 % (37.0-47.0); HEMOGLOBIN 14.2 gm/dl (12.0-16.0); IMMATURE GRAN ABSOLUTE AUTO 0.04 K/mm3 (0.00-0.05); IMMATURE GRAN PERCENT AUTO 0.3 % (0.0-0.4); LYMPHOCYTES ABSOLUTE AUTO 0.8 K/mm3 (1.0-4.8); LYMPHOCYTES PERCENT AUTO 6.1 % (24.0-44.0); MEAN CORPUSCULAR HEMOGLOBIN 31.2 pg (28.0-32.0); MEAN CORPUSCULAR VOLUME 91.9 fl (83.0-99.0); MEAN PLATELET VOLUME 9.1 fl (9.4-12.3); MONOCYTES ABSOLUTE AUTO 0.7 K/mm3 (0.0-0.8); MONOCYTES PERCENT AUTO 5.4 % (0.0-8.0); NEUTROPHILS ABSOLUTE AUTO 11.9 K/mm3 (1.8-7.7); NEUTROPHILS PERCENT AUTO 87.3 % (41.0-71.0); PLATELET COUNT,PLT 310 K/mm3 (150-400); RED BLOOD CELL COUNT 4.55 M/mm3 (4.10-5.30); WHITE BLOOD CELL COUNT,WBC 13.68 K/mm3 (3.9-11.3)
[2023-05-04 02:39] LABS: A/G RATIO 0.9 (1-2); ALBUMIN 3.5 g/dl (3.4-5.0); ANION GAP 14.2 (5-15); BILIRUBIN TOTAL 0.5 mg/dL (0.2-1.0); BUN/CREATININE RATIO 8.9 (14-18); CALCIUM 8.9 mg/dL (8.5-10.1); CREATININE 0.9 mg/dL (0.55-1.02); EST CRCL DRUG DOSING (CG) 64.61 mL/min; POTASSIUM,K 3.2 mEq/L (3.5-5.1); PROTEIN TOTAL,TP 7.4 g/dl (6.4-8.2)
[2023-05-04] MEDS ORDERED: Piperacillin/Tazobactam 4.5 GM in Sodium Chloride 0.9% 100 ML IV ONE (06:27)
[2023-05-04 10:23] VITALS: BP 112/81; PULSE 80
== END 2023-05-04 07:50 | disposition home or self-care (01) ==
LOC: JD.ED 00:21
DX: K57.92 Diverticulitis of intestine, part unspecified, without perforation or abscess without bleeding (principal); J45.909 Unspecified asthma, uncomplicated; E66.9 Obesity, unspecified; Z68.41 Body mass index [BMI] 40.0-44.9, adult; Z90.710 Acquired absence of both cervix and uterus; Z79.899 Other long term (current) drug therapy; Z91.048 Other nonmedicinal substance allergy status
CPT/HCPCS: 36415; 80053; 85025; 96361; 96365; 96375; 99284; J2270; J2405; J2543; J3490; J7030

== ENCOUNTER 2023-05-24 11:56 | Emergency (ER) | payer BC ==
[2023-05-24 12:18] VITALS: BP 132/99; PULSE 88
[2023-05-24 12:40] LABS: APPEARANCE,URINE CLEAR (Clear); BASOPHILS PERCENT AUTO 0.5 % (0.0-1.0); BILIRUBIN,URINE NEGATIVE (Negative); COLOR,URINE YELLOW (Yellow); EOSINOPHILS ABSOLUTE AUTO 0.1 K/mm3 (0.0-0.4); EOSINOPHILS PERCENT AUTO 1.2 % (0.0-6.0); GLUCOSE,URINE NEGATIVE (Negative); HEMATOCRIT 44.7 % (37.0-47.0); HEMOGLOBIN 15.3 gm/dl (12.0-16.0); IMMATURE GRAN ABSOLUTE AUTO 0.03 K/mm3 (0.00-0.05); IMMATURE GRAN PERCENT AUTO 0.4 % (0.0-0.4); KETONES,URINE NEGATIVE (Negative); LEUKOCYTE ESTERASE,URINE NEGATIVE (Negative); LYMPHOCYTES ABSOLUTE AUTO 0.8 K/mm3 (1.0-4.8); LYMPHOCYTES PERCENT AUTO 10.1 % (24.0-44.0); MEAN CORPUSCULAR HEMOGLOBIN 31.2 pg (28.0-32.0); MEAN CORPUSCULAR HGB CONC 34.2 g/dl (32.0-36.0); MEAN PLATELET VOLUME 9.1 fl (9.4-12.3); MONOCYTES ABSOLUTE AUTO 0.5 K/mm3 (0.0-0.8); MONOCYTES PERCENT AUTO 5.5 % (0.0-8.0); NEUTROPHILS ABSOLUTE AUTO 6.8 K/mm3 (1.8-7.7); NEUTROPHILS PERCENT AUTO 82.3 % (41.0-71.0); NITRITE,URINE NEGATIVE (Negative); OCCULT BLOOD,URINE NEGATIVE (Negative); PLATELET COUNT,PLT 372 K/mm3 (150-400); PROTEIN,URINE NEGATIVE (Negative); RED BLOOD CELL COUNT 4.91 M/mm3 (4.10-5.30); UROBILINOGEN,URINE 0.2 (0.2-1.0); WHITE BLOOD CELL COUNT,WBC 8.23 K/mm3 (3.9-11.3)
[2023-05-24] MEDS ORDERED: HYDROmorphone 0.5 MG/0.5 ML Syringe IVPUSH ONE (12:41)
[2023-05-24] MEDS ORDERED: Ondansetron 4 MG/2 ML SDV IVPUSH ONE (12:41)
[2023-05-24] MEDS ORDERED: Sodium Chloride 0.9% 1,000 ML IV SCH (12:45)
[2023-05-24 12:55] LABS: RBC,URINE NOT SEEN /hpf (0-5)
[2023-05-24 12:56] LABS: BACTERIA,URINE MANY /hpf (FEW); MUCUS,URINE MANY /hpf (FEW); SQUAMOUS EPITHELIAL CELLS,UR 0-5 /hpf (0-5); WBC,URINE 0-5 /hpf (0-5)
[2023-05-24] MEDS ORDERED: Iopamidol 612 MG/ML 100 ML Bottle IVPUSH ONE (13:13)
[2023-05-24] MEDS ORDERED: Sodium Chloride 0.9% 10 ML Syringe FLUSH ONE (13:13)
[2023-05-24 13:15] LABS: A/G RATIO 0.9 (1-2); ALANINE AMINOTRANSFERASE,ALT 20 U/L (14-59); ALBUMIN 3.8 g/dl (3.4-5.0); ALKALINE PHOSPHATASE 63 U/L (46-116); ANION GAP 13.5 (5-15); ASPARTATE AMNIOTRANSFERASE,AST 15 U/L (15-37); BILIRUBIN TOTAL 0.5 mg/dL (0.2-1.0); BLOOD UREA NITROGEN,BUN 12 mg/dL (7-18); C-REACTIVE PROTEIN <0.2 mg/dL (<1.0); CALCIUM 9.2 mg/dL (8.5-10.1); CARBON DIOXIDE,CO2 28 mEq/L (21-32); CHLORIDE,CL 103 mEq/L (98-107); EST CRCL DRUG DOSING (CG) 59.43 mL/min; ESTIMATED GFR 70 mL/min (>60); GLUCOSE RANDOM 92 mg/dL (70-99); LIPASE 41 U/L (16-77); POTASSIUM,K 3.5 mEq/L (3.5-5.1); PROTEIN TOTAL,TP 7.9 g/dl (6.4-8.2); SODIUM,NA 141 mEq/L (136-145)
[2023-05-24 13:22] LABS: HCG QUANTITATIVE < 1.0 mIU/mL
[2023-05-24 13:53] LABS: CORONAVIRUS COVID-19 NAA NEGATIVE (NEGATIVE); INFLUENZA A NAA NEGATIVE (NEGATIVE)
[2023-05-24] MEDS ORDERED: Ketorolac 30 MG/ML SDV IVPUSH ONE (14:19)
== END 2023-05-24 15:08 | disposition home or self-care (01) ==
LOC: JD.ED 11:56
DX: N83.202 Unspecified ovarian cyst, left side (principal); Z20.822 Contact with and (suspected) exposure to COVID-19; Z90.710 Acquired absence of both cervix and uterus; I10 Essential (primary) hypertension; E78.00 Pure hypercholesterolemia, unspecified; E66.9 Obesity, unspecified; Z79.84 Long term (current) use of oral hypoglycemic drugs; Z79.899 Other long term (current) drug therapy; Z91.048 Other nonmedicinal substance allergy status
CPT/HCPCS: 0240U; 36415; 74177; 80053; 81001; 83690; 83735; 84702; 85025; 86140; 96361; 96374; 96375; 99284; J1170; J2405; J3490; J7030; Q9967

== ENCOUNTER 2023-08-29 11:17 | Day surgery (SDC) | payer BC ==
[~2023-08-29 11:17] MED LIST changes: -Lactated Ringers 1,000 ML IV SCH; -Lidocaine 1%/Sod Bicarbonate in NS 8.4% 1 ML Syringe IDERM PRN
[2023-08-29] MEDS: Lactated Ringers 1,000 ML IV SCH (11:45)
[2023-08-29] MEDS: Acetaminophen 325 MG Tab PO ONE (13:30)
[2023-08-29] MEDS ORDERED: fentaNYL 250 MCG/5 ML SDV ONE (17:40)
[2023-08-29] MEDS ORDERED: Lidocaine 1% 6 ML ONE (17:40)
[2023-08-29] MEDS ORDERED: Midazolam 1 MG/ML 2 ML SDV ONE (17:40)
[2023-08-29] MEDS ORDERED: Propofol 200 MG/20 ML SDV ONE ×2 (17:40→19:30)
[2023-08-29] MEDS ORDERED: ceFAZolin 2 GM Vial ONE (18:56)
[2023-08-29] MEDS ORDERED: ceFAZolin 1 GM Vial ONE (18:57)
[2023-08-29] MEDS: EPINEPHrine 1 MG/ML SDV ONE (19:05)
[2023-08-29] MEDS: Bupivacaine 0.5% 30 ML SDV ONE (19:05)
[2023-08-29] MEDS ORDERED: Ondansetron 4 MG/2 ML SDV ONE (19:09)
[2023-08-29 20:21] VITALS: BP 98/67; PULSE 59
[2023-08-29] MEDS: Ibuprofen 600 MG Tab PO ONE (20:44)
[2023-08-29] MEDS: Acetaminophen/oxyCODONE 325-5 MG Tab PO ONE (20:44)
== END 2023-08-29 20:50 | disposition home or self-care (01) ==
LOC: JD.SDS 11:17
PROVIDERS: ATTEND Surgery
DX: K42.9 Umbilical hernia without obstruction or gangrene (principal); I10 Essential (primary) hypertension; G47.00 Insomnia, unspecified; B37.2 Candidiasis of skin and nail; Z79.899 Other long term (current) drug therapy; Z88.8 Allergy status to other drugs, medicaments and biological substances
CPT/HCPCS: 49613; A9270; J0171; J0665; J0690; J2250; J2405; J2704; J3010; J7120; J3490

== ENCOUNTER 2024-01-30 20:12 | Emergency (ER) | payer BC ==
[2024-01-30 22:54] VITALS: BP 142/100; PULSE 76
[2024-01-30 23:01] LABS: APPEARANCE,URINE CLEAR (Clear); BILIRUBIN,URINE NEGATIVE (Negative); COLOR,URINE YELLOW (Yellow); GLUCOSE,URINE NEGATIVE (Negative); KETONES,URINE TRACE (Negative); LEUKOCYTE ESTERASE,URINE 1+ (Negative); NITRITE,URINE POSITIVE (Negative); OCCULT BLOOD,URINE NEGATIVE (Negative); PH,URINE 5.5 (5.0-8.0); PROTEIN,URINE NEGATIVE (Negative); UROBILINOGEN,URINE 0.2 (0.2-1.0)
[2024-01-30 23:11] LABS: BACTERIA,URINE MANY /hpf (FEW); MUCUS,URINE FEW /hpf (FEW); RBC,URINE 0-5 /hpf (0-5); WBC,URINE 20-30 /hpf (0-5)
[2024-01-30] MEDS: tiZANidine 4 MG Tab PO ONE (23:36)
[2024-01-30] MEDS: Celecoxib 100 MG Cap PO ONE (23:36)
[2024-01-31] MEDS: Cefdinir 300 MG Cap PO ONE (00:47)
[2024-01-31] MEDS: tiZANidine 4 MG Tab PO ONE (00:48)
== END 2024-01-31 00:50 | disposition home or self-care (01) ==
LOC: JD.ED 20:12
DX: M62.830 Muscle spasm of back (principal); I10 Essential (primary) hypertension; E78.00 Pure hypercholesterolemia, unspecified; E66.9 Obesity, unspecified; Z91.048 Other nonmedicinal substance allergy status; Z79.4 Long term (current) use of insulin; Z79.899 Other long term (current) drug therapy; Z90.710 Acquired absence of both cervix and uterus; Z68.42 Body mass index [BMI] 45.0-49.9, adult
CPT/HCPCS: 81001; 87086; 99283; A9270; 87088; 87186

== ENCOUNTER 2024-02-10 18:16 | Emergency (ER) | payer BC ==
[2024-02-10 19:34] VITALS: BP 142/108
[2024-02-11 00:05] VITALS: PULSE 84
== END 2024-02-10 19:20 | disposition home or self-care (01) ==
LOC: JD.ED 18:16
DX: L50.0 Allergic urticaria (principal); I10 Essential (primary) hypertension; E78.00 Pure hypercholesterolemia, unspecified; E66.9 Obesity, unspecified; Z68.42 Body mass index [BMI] 45.0-49.9, adult; Z79.899 Other long term (current) drug therapy; Z91.048 Other nonmedicinal substance allergy status
CPT/HCPCS: 99283

== ENCOUNTER 2024-03-17 01:36 | Emergency (ER) | payer BC ==
[2024-03-17 02:31] LABS: APPEARANCE,URINE CLEAR (Clear); BILIRUBIN,URINE NEGATIVE (Negative); COLOR,URINE LIGHT YELLOW (Yellow); GLUCOSE,URINE NEGATIVE (Negative); KETONES,URINE NEGATIVE (Negative); LEUKOCYTE ESTERASE,URINE TRACE (Negative); NITRITE,URINE NEGATIVE (Negative); OCCULT BLOOD,URINE NEGATIVE (Negative); PROTEIN,URINE NEGATIVE (Negative); UROBILINOGEN,URINE 0.2 (0.2-1.0)
[2024-03-17] MEDS: Sodium Chloride 0.9% 1,000 ML IV SCH (02:36)
[2024-03-17 02:37] LABS: BASOPHILS PERCENT AUTO 0.3 % (0.0-1.0); EOSINOPHILS ABSOLUTE AUTO 0.2 K/mm3 (0.0-0.4); EOSINOPHILS PERCENT AUTO 2.7 % (0.0-6.0); HEMATOCRIT 37.6 % (37.0-47.0); HEMOGLOBIN 12.9 gm/dl (12.0-16.0); IMMATURE GRAN ABSOLUTE AUTO 0.03 K/mm3 (0.00-0.05); IMMATURE GRAN PERCENT AUTO 0.5 % (0.0-0.4); LYMPHOCYTES ABSOLUTE AUTO 1.1 K/mm3 (1.0-4.8); LYMPHOCYTES PERCENT AUTO 16.6 % (24.0-44.0); MEAN CORPUSCULAR HEMOGLOBIN 29.9 pg (28.0-32.0); MEAN CORPUSCULAR HGB CONC 34.3 g/dl (32.0-36.0); MEAN PLATELET VOLUME 8.9 fl (9.4-12.3); MONOCYTES ABSOLUTE AUTO 0.4 K/mm3 (0.0-0.8); MONOCYTES PERCENT AUTO 6.1 % (0.0-8.0); NEUTROPHILS ABSOLUTE AUTO 4.7 K/mm3 (1.8-7.7); NEUTROPHILS PERCENT AUTO 73.8 % (41.0-71.0); PLATELET COUNT,PLT 299 K/mm3 (150-400); RED BLOOD CELL COUNT 4.32 M/mm3 (4.10-5.30); WHITE BLOOD CELL COUNT,WBC 6.39 K/mm3 (3.9-11.3)
[2024-03-17] MEDS: Metoclopramide 10 MG/2 ML SDV IVPUSH ONE (02:37)
[2024-03-17] MEDS: HYDROmorphone 1 MG/ML Syringe IVPUSH ONE (02:38)
[2024-03-17] MEDS: diphenhydrAMINE 50 MG/ML SDV IVPUSH ONE (02:42)
[2024-03-17 02:53] LABS: RBC,URINE 0-5 /hpf (0-5)
[2024-03-17 02:54] LABS: BACTERIA,URINE MODERATE /hpf (FEW); MUCUS,URINE NOT SEEN /hpf (FEW)
[2024-03-17 03:07] LABS: A/G RATIO 1.2 (1-2); ALBUMIN 3.8 g/dl (3.4-5.0); BILIRUBIN TOTAL 0.5 mg/dL (0.2-1.0); BUN/CREATININE RATIO 24.3 (14-18); C-REACTIVE PROTEIN 0.74 mg/dL (<0.30); CALCIUM 9.4 mg/dL (8.5-10.1); CREATININE 0.7 mg/dL (0.55-1.02); EST CRCL DRUG DOSING (CG) 83.99 mL/min; MAGNESIUM 1.8 mg/dL (1.8-2.4); PROTEIN TOTAL,TP 7.1 g/dl (6.4-8.2)
[2024-03-17 03:12] LABS: LACTIC ACID 0.7 mmol/L (0.4-2.0)
[2024-03-17] MEDS: Ketorolac 30 MG/ML SDV IVPUSH ONE (03:59)
[2024-03-17] MEDS: HYDROmorphone 0.5 MG/0.5 ML Syringe IVPUSH ONE (04:00)
[2024-03-17] MEDS: cefTRIAXone 2 GM in Sodium Chloride 0.9% 100 ML IV ONE (04:01)
[2024-03-17 05:08] VITALS: BP 158/98; PULSE 76
== END 2024-03-17 05:08 | disposition home or self-care (01) ==
LOC: JD.ED 01:36
DX: N12 Tubulo-interstitial nephritis, not specified as acute or chronic (principal); N39.0 Urinary tract infection, site not specified; I10 Essential (primary) hypertension; E78.00 Pure hypercholesterolemia, unspecified; J45.909 Unspecified asthma, uncomplicated; Z79.899 Other long term (current) drug therapy; Z88.2 Allergy status to sulfonamides; Z91.048 Other nonmedicinal substance allergy status; Z90.710 Acquired absence of both cervix and uterus
CPT/HCPCS: 36415; 80053; 81001; 83605; 83735; 85025; 85652; 86140; 87086; 87088; 87186; 96361; 96365; 96375; 96376; 99284; J0696; J1171; J1200; J1885; J2765; J3490; J7030

== ENCOUNTER 2024-07-16 13:29 | Emergency (ER) | payer BC ==
[2024-07-16 17:19] LABS: BASOPHILS PERCENT AUTO 0.4 % (0.0-1.0); EOSINOPHILS ABSOLUTE AUTO 0.1 K/mm3 (0.0-0.4); EOSINOPHILS PERCENT AUTO 2.1 % (0.0-6.0); HEMATOCRIT 41.3 % (37.0-47.0); HEMOGLOBIN 13.8 gm/dl (12.0-16.0); IMMATURE GRAN ABSOLUTE AUTO 0.01 K/mm3 (0.00-0.05); IMMATURE GRAN PERCENT AUTO 0.1 % (0.0-0.4); LYMPHOCYTES ABSOLUTE AUTO 0.9 K/mm3 (1.0-4.8); LYMPHOCYTES PERCENT AUTO 13.5 % (24.0-44.0); MEAN CORPUSCULAR HEMOGLOBIN 29.6 pg (28.0-32.0); MEAN CORPUSCULAR HGB CONC 33.4 g/dl (32.0-36.0); MEAN CORPUSCULAR VOLUME 88.4 fl (83.0-99.0); MEAN PLATELET VOLUME 9.3 fl (9.4-12.3); MONOCYTES ABSOLUTE AUTO 0.4 K/mm3 (0.0-0.8); NEUTROPHILS ABSOLUTE AUTO 5.3 K/mm3 (1.8-7.7); NEUTROPHILS PERCENT AUTO 77.9 % (41.0-71.0); PLATELET COUNT,PLT 344 K/mm3 (150-400); RED BLOOD CELL COUNT 4.67 M/mm3 (4.10-5.30)
[2024-07-16 17:42] LABS: A/G RATIO 1.1 (1-2); ALBUMIN 3.7 g/dl (3.4-5.0); ANION GAP 8.9 (5-15); BILIRUBIN TOTAL 0.6 mg/dL (0.2-1.0); BUN/CREATININE RATIO 15.6 (14-18); C-REACTIVE PROTEIN 0.33 mg/dL (<0.30); CALCIUM 8.9 mg/dL (8.5-10.1); CREATININE 0.9 mg/dL (0.55-1.02); EST CRCL DRUG DOSING (CG) 63.92 mL/min; POTASSIUM,K 2.9 mEq/L (3.5-5.1); PROTEIN TOTAL,TP 7.2 g/dl (6.4-8.2)
[2024-07-16 17:48] LABS: LACTIC ACID 0.8 mmol/L (0.4-2.0)
[2024-07-16] MEDS: Iopamidol 612 MG/ML 100 ML Bottle IVPUSH ONE (17:58)
[2024-07-16] MEDS: Sodium Chloride 0.9% 10 ML Syringe FLUSH ONE (17:58)
[2024-07-16] MEDS: Metoclopramide 10 MG/2 ML SDV IVPUSH ONE (18:11)
[2024-07-16] MEDS: Ketorolac 30 MG/ML SDV IVPUSH ONE (18:13)
[2024-07-16] MEDS: diphenhydrAMINE 50 MG/ML SDV IVPUSH ONE (18:15)
[2024-07-16] MEDS: Lactated Ringers 1,000 ML IV ONE (18:17)
[2024-07-16] MEDS: Potassium Chloride 20 MEQ Tab.ER PO ONE ×2 (18:23→19:30)
[2024-07-16 21:23] VITALS: BP 129/93; PULSE 77
== END 2024-07-16 19:30 | disposition home or self-care (01) ==
LOC: JD.ED 13:29
DX: R10.31 Right lower quadrant pain (principal); E87.6 Hypokalemia; I10 Essential (primary) hypertension; E78.00 Pure hypercholesterolemia, unspecified; Z91.048 Other nonmedicinal substance allergy status; Z88.2 Allergy status to sulfonamides; Z79.51 Long term (current) use of inhaled steroids; Z79.4 Long term (current) use of insulin; Z79.899 Other long term (current) drug therapy
CPT/HCPCS: 36415; 74177; 80053; 83605; 83690; 85025; 86140; 96361; 96374; 96375; 99284; A9270; J1200; J1885; J2765; J7120; Q9967

== ENCOUNTER 2024-07-25 07:03 | Day surgery (SDC) | payer BC ==
[2024-07-25] MEDS ORDERED: Propofol 200 MG/20 ML SDV ONE (07:10)
[2024-07-25] MEDS ORDERED: Ketamine 200 MG/20 ML MDV ONE (07:11)
[2024-07-25] MEDS ORDERED: Lidocaine 2% 5 ML SDV ONE (07:11)
[2024-07-25] MEDS ORDERED: Midazolam 1 MG/ML 2 ML SDV ONE (07:11)
[2024-07-25] MEDS ORDERED: Ondansetron 4 MG/2 ML SDV ONE (07:11)
[2024-07-25] MEDS: Lactated Ringers 1,000 ML IV SCH (07:20)
[2024-07-25 09:18] VITALS: BP 109/82; PULSE 80
== END 2024-07-25 09:13 | disposition home or self-care (01) ==
LOC: JD.SDS 07:03
PROVIDERS: ATTEND Surgery
DX: Z12.11 Encounter for screening for malignant neoplasm of colon (principal); K29.50 Unspecified chronic gastritis without bleeding; K21.9 Gastro-esophageal reflux disease without esophagitis; K64.4 Residual hemorrhoidal skin tags; K44.9 Diaphragmatic hernia without obstruction or gangrene; K64.8 Other hemorrhoids; I10 Essential (primary) hypertension; F41.9 Anxiety disorder, unspecified; Z86.0100 Personal history of colon polyps, unspecified; E78.00 Pure hypercholesterolemia, unspecified; F17.200 Nicotine dependence, unspecified, uncomplicated; Z79.899 Other long term (current) drug therapy; Z88.2 Allergy status to sulfonamides
CPT/HCPCS: 43239; 45378; J2003; J2250; J2405; J2704; J3490; J7120; 00813

== ENCOUNTER 2024-08-29 11:43 | Day surgery (SDC) | payer BC ==
[~2024-08-29 11:43] MED LIST changes: +Gabapentin 300 MG Cap PO ONE
[2024-08-29] MEDS ORDERED: Acetaminophen 325 MG Tab PO ONE (11:45)
[2024-08-29] MEDS ORDERED: Midazolam 1 MG/ML 2 ML SDV ONE (11:48)
[2024-08-29] MEDS ORDERED: fentaNYL 250 MCG/5 ML SDV ONE (11:48)
[2024-08-29] MEDS ORDERED: Lactated Ringers 1,000 ML ONE (11:48)
[2024-08-29] MEDS ORDERED: ceFAZolin 2 GM Vial ONE ×2 (11:48→13:30)
[2024-08-29] MEDS ORDERED: Propofol 200 MG/20 ML SDV ONE ×2 (11:48→11:52)
[2024-08-29] MEDS ORDERED: Rocuronium 50 MG/5 ML Vial ONE (11:48)
[2024-08-29] MEDS ORDERED: Dexamethasone 4 MG/ML 5 ML MDV ONE (11:48)
[2024-08-29] MEDS ORDERED: Ondansetron 4 MG/2 ML SDV ONE (11:48)
[2024-08-29] MEDS ORDERED: Lidocaine 1% 4 ML ONE (11:49)
[2024-08-29] MEDS: Lactated Ringers 1,000 ML IV SCH (12:10)
[2024-08-29] MEDS ORDERED: Ondansetron 4 MG/2 ML SDV IVPUSH PRN (12:24)
[2024-08-29] MEDS ORDERED: dexmedeTOMIDine HCl 200 MCG/2 ML SDV ONE (14:02)
[2024-08-29] MEDS: EPINEPHrine 1 MG/ML SDV ONE (14:07)
[2024-08-29] MEDS: Bupivacaine 0.5% 30 ML SDV ONE (14:07)
[2024-08-29] MEDS: Lidocaine 1% 30 ML SDV ONE (14:07)
[2024-08-29] MEDS ORDERED: Ketorolac 30 MG/ML SDV ONE (14:20)
[2024-08-29] MEDS ORDERED: Sugammadex Sodium 200 MG/2 ML VIAL IV ONE (14:23)
[2024-08-29] MEDS: fentaNYL 100 MCG/2 ML SDV IVPUSH PRN (15:26)
[2024-08-29] MEDS: HYDROmorphone 0.5 MG/0.5 ML Syringe IVPUSH PRN (15:40)
[2024-08-29] MEDS: Acetaminophen/oxyCODONE 325-5 MG Tab PO PRN (16:14)
[2024-08-29] MEDS ORDERED: Dicyclomine 10 MG Cap PO ONE (17:15)
[2024-08-29] MEDS: Dicyclomine 20 MG/2 ML SDV IM ONE (17:26)
[2024-08-29 18:15] VITALS: BP 116/67; PULSE 68
== END 2024-08-29 17:49 | disposition home or self-care (01) ==
LOC: JD.SDS 11:43
PROVIDERS: ATTEND Surgery
DX: K35.80 Unspecified acute appendicitis (principal); K38.1 Appendicular concretions; I10 Essential (primary) hypertension; E66.01 Morbid (severe) obesity due to excess calories; F17.210 Nicotine dependence, cigarettes, uncomplicated; Z68.42 Body mass index [BMI] 45.0-49.9, adult; Z88.2 Allergy status to sulfonamides; Z79.899 Other long term (current) drug therapy; Z91.09 Other allergy status, other than to drugs and biological substances
CPT/HCPCS: 44970; A9270; J0171; J0500; J0665; J0690; J1100; J2003; J2250; J2405; J2704; J3010; J7120; 00840; J1885; J3490

== ENCOUNTER 2024-09-02 14:33 | Emergency (ER) | payer BC ==
[2024-09-02 15:58] VITALS: BP 145/116; PULSE 87
== END 2024-09-02 15:39 | disposition home or self-care (01) ==
LOC: JD.ED 14:33
DX: R21 Rash and other nonspecific skin eruption (principal); I10 Essential (primary) hypertension; E78.00 Pure hypercholesterolemia, unspecified; Z91.048 Other nonmedicinal substance allergy status; Z88.2 Allergy status to sulfonamides; Z79.899 Other long term (current) drug therapy; Z79.51 Long term (current) use of inhaled steroids
CPT/HCPCS: 99283

== ENCOUNTER 2025-05-11 15:53 | Emergency (ER) | payer BC ==
[2025-05-11 16:06] VITALS: BP 164/99
[2025-05-11] MEDS ORDERED: Sodium Chloride 0.9% 10 ML Syringe FLUSH PRN (16:32)
[2025-05-11] MEDS: Alum Hydrox/Mag Hydrox/Simeth 30 ML, Lidocaine 2% 15 ML PO ONE (16:45)
[2025-05-11 17:03] LABS: BASOPHILS ABSOLUTE AUTO 0.0 K/mm3 (0.0-0.2); BASOPHILS PERCENT AUTO 0.5 % (0.0-1.0); EOSINOPHILS ABSOLUTE AUTO 0.3 K/mm3 (0.0-0.4); EOSINOPHILS PERCENT AUTO 3.7 % (0.0-6.0); IMMATURE GRAN ABSOLUTE AUTO 0.01 K/mm3 (0.00-0.05); IMMATURE GRAN PERCENT AUTO 0.1 % (0.0-0.4); LYMPHOCYTES ABSOLUTE AUTO 0.9 K/mm3 (1.0-4.8); LYMPHOCYTES PERCENT AUTO 11.5 % (24.0-44.0); MEAN PLATELET VOLUME 9.3 fl (9.4-12.3); MONOCYTES ABSOLUTE AUTO 0.5 K/mm3 (0.0-0.8); MONOCYTES PERCENT AUTO 7.2 % (0.0-8.0); NEUTROPHILS ABSOLUTE AUTO 5.8 K/mm3 (1.8-7.7); NEUTROPHILS PERCENT AUTO 77.0 % (41.0-71.0); NRBC ABSOLUTE 0.00 (0.00-0.02); NRBC PERCENT 0.0 % (0.0-0.2); PLATELET COUNT,PLT 342 K/mm3 (150-400); RED BLOOD CELL COUNT 4.29 M/mm3 (4.10-5.30); WHITE BLOOD CELL COUNT,WBC 7.48 K/mm3 (3.9-11.3)
[2025-05-11 17:31] LABS: A/G RATIO 0.9 (1-2); ALANINE AMINOTRANSFERASE,ALT 26.0 U/L (14-59); ASPARTATE AMNIOTRANSFERASE,AST 14.0 U/L (15-37); BILIRUBIN TOTAL 0.3 mg/dL (0.2-1.0); BLOOD UREA NITROGEN,BUN 18.0 mg/dL (7-18); CARBON DIOXIDE,CO2 26.0 mEq/L (21-32); CHLORIDE,CL 107.0 mEq/L (98-107); CREATININE 0.9 mg/dL (0.55-1.02); EST CRCL DRUG DOSING (CG) 64.62 mL/min; ESTIMATED GFR 79.0 mL/min (>60); GLUCOSE RANDOM 99.0 mg/dL (70-99); POTASSIUM,K 3.7 mEq/L (3.5-5.1); PROTEIN TOTAL,TP 6.9 g/dl (6.4-8.2); SODIUM,NA 143.0 mEq/L (136-145); TROPONIN I HIGH SENSITIVITY 5.0 pg/mL (<=51)
[2025-05-11 19:52] VITALS: PULSE 70
== END 2025-05-11 19:20 | disposition home or self-care (01) ==
LOC: JD.ED 15:53
DX: K21.9 Gastro-esophageal reflux disease without esophagitis (principal); I10 Essential (primary) hypertension; E78.00 Pure hypercholesterolemia, unspecified; J45.909 Unspecified asthma, uncomplicated; E66.9 Obesity, unspecified; F17.200 Nicotine dependence, unspecified, uncomplicated; Z68.42 Body mass index [BMI] 45.0-49.9, adult; Z98.84 Bariatric surgery status; Z90.710 Acquired absence of both cervix and uterus; Z88.2 Allergy status to sulfonamides; Z91.048 Other nonmedicinal substance allergy status; Z79.4 Long term (current) use of insulin; Z79.899 Other long term (current) drug therapy
CPT/HCPCS: 36415; 71045; 80053; 83690; 84484; 85025; 93005; 99285; A9270; J3490